=== PATIENT | male | born 1960 | race Caucasian/White ===

== ENCOUNTER 2020-08-10 12:05 | Outpatient (CLI) | payer MEDICARE | END 2020-08-10 12:06 | disposition home or self-care (01) | LOC: ULT 12:05 | PROVIDERS: ATTEND Family Medicine | DX: R09.89 Other specified symptoms and signs involving the circulatory and respiratory systems (principal) | CPT/HCPCS: 93306 ==

== ENCOUNTER 2021-10-16 14:36 | Outpatient (CLI) | payer MEDICARE, OTHER | END 2021-10-16 14:37 | disposition home or self-care (01) | LOC: ULT 14:36 | PROVIDERS: ATTEND Student in an Organized Health Care Education/Training Program | DX: R22.41 Localized swelling, mass and lump, right lower limb (principal); R22.42 Localized swelling, mass and lump, left lower limb; I82.401 Acute embolism and thrombosis of unspecified deep veins of right lower extremity ==

== ENCOUNTER 2022-01-24 21:37 | Inpatient (IN) | payer OTHER ==
[2022-01-24 22:30] LABS: Hemoglobin 13.1 g/dL (14.0-18.0); Mean Corpuscular HGB CONC 34.8 g/dL (32.0-36.0); Mean Corpuscular Hemoglobin 42.7 pg (27.0-31.0); Mean Platelet Volume 7.5 fL (7.4-10.4); Platelet Count 411 10x3/uL (130-400); RBC Distribution Width 13.1 % (11.5-14.5); Red Blood Cell (RBC) Count 3.06 mill/uL (4.70-6.10); White Blood Cell (WBC) Count 12.4 10x3/uL (4.8-10.8)
[2022-01-24 23:10] LABS: Band 2 % (5-11); Lymphocytes 28 % (21-51); MDiff Complete? YES; Macrocytosis MODERATE=16-30 cells (100X) (0-5/hpf); Monocytes 2 % (0-10); Neutrophil 66 % (42-75); Nucleated RBC 1 % (0); Platelet Morphology Comment Appears Increased; Reactive Lymphocytes 1 % (0-10); Target Cells MODERATE= 6-15 cells (100X) (0-1/hpf)
[2022-01-24 23:20] LABS: AST (SGOT) 133 U/L (5-34); Magnesium 1.7 mg/dL (1.6-2.6); Potassium 2.7 mmol/L (3.5-5.1); Protein, Total 6.9 g/dL (6.0-8.3)
[2022-01-24 23:26] LABS: ALT (SGPT) 49 U/L (8-55); Albumin 2.7 g/dL (3.5-5.0); Alkaline Phosphatase 316 U/L (40-110); Anion Gap 20 mmol/L (10-20); BUN (Urea Nitrogen) 8 mg/dL (8.4-25.7); Bilirubin, Total 2.4 mg/dL (0.2-1.2); Calc. Creatinine Clearance 0 mL/min (70-130); Calcium 8.1 mg/dL (7.8-10.44); Carbon Dioxide 18 mmol/L (22-29); Chloride 97 mmol/L (98-107); Estimated GFR 38; Globulin 4.6 g/dL (2.4-3.5); Glucose 141 mg/dL (70-105); Lipase 11 U/L (8-78); Sodium 131 mmol/L (136-145)
[2022-01-24] MEDS ORDERED: Aspirin Chewable 81 MG TAB ONE (23:55)
[2022-01-24] MEDS ORDERED: Potassium Chloride 20 MEQ TAB ONE (23:56)
[2022-01-25] MEDS ORDERED: Potassium Chloride 40 MEQ in Sodium Chloride 0.9% 250 ML 250 ML IVPB SCH (00:30)
[2022-01-25] MEDS ORDERED: Ondansetron ODT 4 MG TAB PO PRN (00:58)
[2022-01-25] MEDS ORDERED: Acetaminophen 325 MG TAB PO PRN (00:58)
[2022-01-25 01:37] LABS: Lactic Acid 2.1 mmol/L (0.5-2.2)
[2022-01-25] MEDS ORDERED: Lactated Ringer's 1,000 ML IV SCH ×2 (01:45)
[2022-01-25 02:10] LABS: Troponin I 0.039 ng/mL (< 0.028)
[2022-01-25] MEDS: Ondansetron PF 4 MG/2 ML Vial IVP PRN ×2 (02:25→08:09)
[2022-01-25 02:40] VITALS: BMI 22.1
[2022-01-25 03:31] LABS: SARS-CoV-2 NAA Rapid Test Not Detected (NotDetected)
[2022-01-25] MEDS: Lactated Ringer's 1,000 ML IV SCH ×6 (04:29→21:03)
[2022-01-25 05:07] LABS: Troponin I 0.028 ng/mL (< 0.028)
[2022-01-25 06:01] LABS: PTT 35.6 sec (22.9-36.1)
[2022-01-25 06:24] LABS: Chloride 105 mmol/L (98-107); Potassium 2.8 mmol/L (3.5-5.1); Sodium 134 mmol/L (136-145)
[2022-01-25 06:25] LABS: Glucose 102 mg/dL (70-105)
[2022-01-25 06:26] LABS: Globulin 2.6 g/dL (2.4-3.5)
[2022-01-25 06:27] LABS: Anion Gap 12 mmol/L (10-20); Bilirubin, Total 1.5 mg/dL (0.2-1.2); Carbon Dioxide 20 mmol/L (22-29)
[2022-01-25 06:28] LABS: Alkaline Phosphatase 226 U/L (40-110); Calcium 6.9 mg/dL (7.8-10.44); Protein, Total 4.6 g/dL (6.0-8.3)
[2022-01-25 06:29] LABS: Calc. Creatinine Clearance 49 mL/min (70-130); Estimated GFR 49
[2022-01-25 06:30] LABS: AST (SGOT) 93 U/L (5-34); BUN (Urea Nitrogen) 9 mg/dL (8.4-25.7)
[2022-01-25 06:31] LABS: ALT (SGPT) 38 U/L (8-55)
[2022-01-25 06:45] LABS: #Basophils 0.1 thou/uL (0.0-0.2); #Eosinphils 0.1 thou/uL (0.0-0.7); #Lymphocytes 3.4 thou/uL (1.20-3.40); #Monocytes 0.6 thou/uL (0.11-0.59); #Neutrophils 9.4 thou/uL (1.40-6.50); %Basophils 0.8 % (0.0-1.0); %Eosinophils 0.4 % (0.0-10.0); %Monocytes 4.7 % (0.0-10.0); Hemoglobin 9.5 g/dL (14.0-18.0); Mean Corpuscular HGB CONC 32.5 g/dL (32.0-36.0); Mean Corpuscular Hemoglobin 40.4 pg (27.0-31.0); Mean Platelet Volume 7.9 fL (7.4-10.4); Platelet Count 314 10x3/uL (130-400); RBC Distribution Width 13.2 % (11.5-14.5); Red Blood Cell (RBC) Count 2.34 mill/uL (4.70-6.10); White Blood Cell (WBC) Count 13.7 10x3/uL (4.8-10.8)
[2022-01-25] MEDS ORDERED: metroNIDAZOLE 500 MG in Premix Bag 1 BAG IVPB SCH ×2 (07:00→14:00)
[2022-01-25] MEDS: Apixaban 5 MG TAB PO SCH ×2 (08:11→19:49)
[2022-01-25] MEDS ORDERED: Iopamidol-370 76% 500 ML 1 ML ONE (10:20)
[2022-01-25] MEDS ORDERED: Multivitamins, Adult 10 ML, Folic Acid 1 MG, Thiamine HCl 100 MG in Dextrose 5 %-0.45 %... IV SCH (11:00)
[2022-01-25] MEDS: Vancomycin 1.5 GRAM/300 ML BAG 1.5 GM in Premix Bag 1 BAG IVPB SCH (11:20)
[2022-01-25] MEDS: Potassium Chloride 20 MEQ in Premix Bag 1 BAG IVPB SCH ×4 (13:09→18:54)
[2022-01-25] MEDS: Cefepime 1 GM in Sodium Chloride 0.9% 100 ML IVPB SCH ×2 (13:16→21:02)
[2022-01-25 14:11] LABS: Hemoglobin 9.2 g/dL (14.0-18.0); Mean Corpuscular HGB CONC 33.9 g/dL (32.0-36.0); Mean Corpuscular Hemoglobin 41.9 pg (27.0-31.0); Mean Platelet Volume 7.4 fL (7.4-10.4); Platelet Count 310 10x3/uL (130-400); Red Blood Cell (RBC) Count 2.18 mill/uL (4.70-6.10)
[2022-01-25 14:30] LABS: Howell Jolly Bodies SLIGHT = 1-2 cells (100X) (None Seen); Lymphocytes 16 % (21-51); MDiff Complete? YES; Macrocytosis MODERATE=16-30 cells (100X) (0-5/hpf); Monocytes 6 % (0-10); Neutrophil 78 % (42-75); Nucleated RBC 4 % (0); Pappenheimer Bodies SLIGHT = 1-2 cells (100X) (None Seen); Platelet Morphology Comment Appears Adequate; Polychromasia MODERATE = 3-4 cells (100X) (0-2/hpf); Target Cells SLIGHT = 2-5 cells (100X) (0-1/hpf); White Blood Cell (WBC) Count 12.1 10x3/uL (4.8-10.8)
[2022-01-25 15:02] LABS: ALT (SGPT) 35 U/L (8-55); AST (SGOT) 74 U/L (5-34); Albumin 1.9 g/dL (3.5-5.0); Alkaline Phosphatase 206 U/L (40-110); Anion Gap 12 mmol/L (10-20); BUN (Urea Nitrogen) 8 mg/dL (8.4-25.7); Bilirubin, Total 1.7 mg/dL (0.2-1.2); Calc. Creatinine Clearance 57 mL/min (70-130); Carbon Dioxide 19 mmol/L (22-29); Chloride 106 mmol/L (98-107); Estimated GFR 59; Globulin 2.5 g/dL (2.4-3.5); Glucose 81 mg/dL (70-105); Potassium 2.9 mmol/L (3.5-5.1); Protein, Total 4.4 g/dL (6.0-8.3); Sodium 134 mmol/L (136-145)
[2022-01-25 15:10] LABS: Calcium 6.8 mg/dL (7.8-10.44)
[2022-01-25] MEDS ORDERED: Potassium Chloride 40 MEQ in Premix Bag 1 BAG IVPB SCH (15:15)
[2022-01-25] MEDS: metroNIDAZOLE 500 MG in Premix Bag 1 BAG IVPB SCH (17:00)
[2022-01-25 17:52] LABS: Bacteria/HPF None Seen HPF (None Seen); Bilirubin 1+ (Negative); Blood, Urine Negative (Negative); CAUTI Indications for Culture Immunosuppressed; Clarity Clear (Clear); Glucose, Urine (Dipstick) Normal (Negative); Ketone, Urine 10 mg/dL (Negative); Leukocyte Negative Leu/uL (Negative); Nitrite Negative (Negative); Protein, Urine (Dipstick) 20 mg/dL (Neg-Trace); RBC/HPF 0-3 HPF (0-3); Squamous Epithelial 0-3 HPF (0-3); WBC/HPF 0-3 HPF (0-3)
[2022-01-25 17:55] LABS: Urine Culture Reflex Yes Yes
[2022-01-25 18:26] LABS: Creatinine, Urine 142.81 mg/dL (63-166); Sodium, Urine Less than 20 mmol/L (Not Available)
[2022-01-25] MEDS: Atorvastatin Calcium 40 MG TAB PO SCH (19:49)
[2022-01-26] MEDS: metroNIDAZOLE 500 MG in Premix Bag 1 BAG IVPB SCH ×3 (01:49→17:55)
[2022-01-26] MEDS: Lactated Ringer's 1,000 ML IV SCH ×5 (02:57→18:10)
[2022-01-26 04:41] LABS: ALT (SGPT) 33 U/L (8-55); AST (SGOT) 53 U/L (5-34); Albumin 1.7 g/dL (3.5-5.0); Alkaline Phosphatase 183 U/L (40-110); Anion Gap 10 mmol/L (10-20); BUN (Urea Nitrogen) 7 mg/dL (8.4-25.7); Bilirubin, Total 1.5 mg/dL (0.2-1.2); Calc. Creatinine Clearance 87 mL/min (70-130); Carbon Dioxide 19 mmol/L (22-29); Chloride 108 mmol/L (98-107); Estimated GFR 89; Globulin 2.3 g/dL (2.4-3.5); Glucose 83 mg/dL (70-105); Potassium 3.4 mmol/L (3.5-5.1); Sodium 134 mmol/L (136-145)
[2022-01-26 04:43] LABS: Calcium 6.6 mg/dL (7.8-10.44)
[2022-01-26 04:57] LABS: Eosinophils 1 % (0-10); Hemoglobin 7.8 g/dL (14.0-18.0); Lymphocytes 9 % (21-51); MDiff Complete? YES; Macrocytosis MODERATE=16-30 cells (100X) (0-5/hpf); Mean Corpuscular Hemoglobin 40.2 pg (27.0-31.0); Mean Platelet Volume 7.5 fL (7.4-10.4); Monocytes 1 % (0-10); Neutrophil 89 % (42-75); Nucleated RBC 2 % (0); Ovalocytes SLIGHT = 2-5 cells (100X) (0-1/hpf); Platelet Count 283 10x3/uL (130-400); Platelet Morphology Comment Appears Adequate; RBC Distribution Width 13.4 % (11.5-14.5); Red Blood Cell (RBC) Count 1.95 mill/uL (4.70-6.10); Target Cells MODERATE= 6-15 cells (100X) (0-1/hpf); White Blood Cell (WBC) Count 9.4 10x3/uL (4.8-10.8)
[2022-01-26] MEDS: Cefepime 1 GM in Sodium Chloride 0.9% 100 ML IVPB SCH ×2 (08:02→21:47)
[2022-01-26] MEDS: Apixaban 5 MG TAB PO SCH (08:03)
[2022-01-26] MEDS ORDERED: PROPOFOL 200 MG/20 ML VIAL ONE (09:15)
[2022-01-26] MEDS ORDERED: Phenylephrine 10 MG/ML VIAL ONE (09:15)
[2022-01-26] MEDS: Vancomycin 1.5 GRAM/300 ML BAG 1.5 GM in Premix Bag 1 BAG IVPB SCH (10:54)
[2022-01-26] MEDS ORDERED: Potassium Chloride 20 MEQ TAB PO SCH ×2 (11:15→17:00)
[2022-01-26] MEDS: Multivitamins, Adult 10 ML, Folic Acid 1 MG, Thiamine HCl 100 MG in Dextrose 5 %-0.45 %... IV SCH (11:30)
[2022-01-26] MEDS: Ondansetron PF 4 MG/2 ML Vial IVP PRN (11:33)
[2022-01-26 16:15] LABS: Hemoglobin 8.2 g/dL (14.0-18.0)
[2022-01-26 16:27] LABS: Potassium 3.9 mmol/L (3.5-5.1)
[2022-01-26] MEDS: Atorvastatin Calcium 40 MG TAB PO SCH (21:48)
[2022-01-27] MEDS: metroNIDAZOLE 500 MG in Premix Bag 1 BAG IVPB SCH (02:14)
[2022-01-27] MEDS: Lactated Ringer's 1,000 ML IV SCH (02:14)
[2022-01-27 05:46] LABS: ALT (SGPT) 35 U/L (8-55); AST (SGOT) 39 U/L (5-34); Albumin 1.7 g/dL (3.5-5.0); Alkaline Phosphatase 161 U/L (40-110); Anion Gap 10 mmol/L (10-20); BUN (Urea Nitrogen) 6 mg/dL (8.4-25.7); Bilirubin, Total 1.3 mg/dL (0.2-1.2); Calc. Creatinine Clearance 118 mL/min (70-130); Carbon Dioxide 20 mmol/L (22-29); Chloride 110 mmol/L (98-107); Estimated GFR 105; Globulin 2.2 g/dL (2.4-3.5); Glucose 78 mg/dL (70-105); Potassium 4.2 mmol/L (3.5-5.1); Protein, Total 3.9 g/dL (6.0-8.3); Sodium 136 mmol/L (136-145)
[2022-01-27 05:56] LABS: Hemoglobin 8.1 g/dL (14.0-18.0); Lymphocytes 20 % (21-51); MDiff Complete? YES; Macrocytosis SLIGHT = 6-15 cells (100X) (0-5/hpf); Mean Corpuscular HGB CONC 32.5 g/dL (32.0-36.0); Mean Corpuscular Hemoglobin 41.2 pg (27.0-31.0); Monocytes 7 % (0-10); Neutrophil 72 % (42-75); Platelet Count 240 10x3/uL (130-400); Platelet Morphology Comment Appears Adequate; RBC Distribution Width 13.7 % (11.5-14.5); Reactive Lymphocytes 1 % (0-10); Red Blood Cell (RBC) Count 1.97 mill/uL (4.70-6.10); White Blood Cell (WBC) Count 12.2 10x3/uL (4.8-10.8)
[2022-01-27 06:04] LABS: Calcium 6.7 mg/dL (7.8-10.44)
[2022-01-27 07:42] LABS: Vancomycin, Trough 15.7 ug/mL
[2022-01-27] MEDS: Vancomycin 1.5 GRAM/300 ML BAG 1.5 GM in Premix Bag 1 BAG IVPB SCH (08:32)
[2022-01-27] MEDS: Pantoprazole 40 MG VIAL IVP SCH (08:33)
[2022-01-27] MEDS: Amoxicillin/Potassium Clav 875 MG TAB PO SCH ×2 (10:32→21:16)
[2022-01-27] MEDS: Multivitamins, Adult 10 ML, Folic Acid 1 MG, Thiamine HCl 100 MG in Dextrose 5 %-0.45 %... IV SCH (11:22)
[2022-01-27] MEDS: metroNIDAZOLE 500 MG TAB PO SCH ×2 (15:33→21:16)
[2022-01-27] MEDS: Apixaban 5 MG TAB PO SCH (21:16)
[2022-01-27] MEDS: Atorvastatin Calcium 40 MG TAB PO SCH (21:16)
[2022-01-28 05:44] LABS: #Eosinphils 0.3 thou/uL (0.0-0.7); #Lymphocytes 2.7 thou/uL (1.20-3.40); #Monocytes 1.4 thou/uL (0.11-0.59); #Neutrophils 10.3 thou/uL (1.40-6.50); %Basophils 0.1 % (0.0-1.0); %Eosinophils 1.7 % (0.0-10.0); %Lymphocytes 18.5 % (21.0-51.0); %Monocytes 9.4 % (0.0-10.0); %Neutrophils 70.3 % (42.0-75.0); Hemoglobin 8.4 g/dL (14.0-18.0); Mean Corpuscular HGB CONC 31.2 g/dL (32.0-36.0); Mean Corpuscular Hemoglobin 39.8 pg (27.0-31.0); Mean Platelet Volume 8.2 fL (7.4-10.4); Platelet Count 266 10x3/uL (130-400); RBC Distribution Width 13.7 % (11.5-14.5); White Blood Cell (WBC) Count 14.7 10x3/uL (4.8-10.8)
[2022-01-28 05:59] LABS: ALT (SGPT) 39 U/L (8-55); AST (SGOT) 35 U/L (5-34); Albumin 1.9 g/dL (3.5-5.0); Alkaline Phosphatase 155 U/L (40-110); Anion Gap 10 mmol/L (10-20); BUN (Urea Nitrogen) 6 mg/dL (8.4-25.7); Bilirubin, Total 1.3 mg/dL (0.2-1.2); Calc. Creatinine Clearance 120 mL/min (70-130); Calcium 7.1 mg/dL (7.8-10.44); Carbon Dioxide 21 mmol/L (22-29); Chloride 108 mmol/L (98-107); Estimated GFR 104; Globulin 2.3 g/dL (2.4-3.5); Glucose 84 mg/dL (70-105); Protein, Total 4.2 g/dL (6.0-8.3); Sodium 135 mmol/L (136-145)
[2022-01-28] MEDS ORDERED: FLU VACC QS2022-23(6MOS UP)/PF 60 MCG/0.5 ML SYRINGE IM ONE (09:00)
[2022-01-28] MEDS ORDERED: Albumin 25% 25 GM/100 ML BOT IVPB SCH (09:30)
[2022-01-28] MEDS: metroNIDAZOLE 500 MG TAB PO SCH ×3 (09:36→21:23)
[2022-01-28] MEDS: Amoxicillin/Potassium Clav 875 MG TAB PO SCH ×2 (09:37→21:23)
[2022-01-28] MEDS: Apixaban 5 MG TAB PO SCH ×2 (09:37→21:23)
[2022-01-28] MEDS: Pantoprazole 40 MG VIAL IVP SCH (09:38)
[2022-01-28] MEDS ORDERED: Furosemide 20 MG/2 ML VIAL SLOW IVP SCH ×2 (09:45→15:00)
[2022-01-28] MEDS: Multivitamins, Adult 10 ML, Folic Acid 1 MG, Thiamine HCl 100 MG in Dextrose 5 %-0.45 %... IV SCH (12:53)
[2022-01-28] MEDS ORDERED: Acetaminophen 325 MG TAB PO SCH (16:00)
[2022-01-28] MEDS: Atorvastatin Calcium 40 MG TAB PO SCH (21:23)
[2022-01-29 05:58] LABS: #Basophils 0.1 thou/uL (0.0-0.2); #Eosinphils 0.3 thou/uL (0.0-0.7); #Lymphocytes 2.8 thou/uL (1.20-3.40); #Monocytes 1.9 thou/uL (0.11-0.59); #Neutrophils 12.2 thou/uL (1.40-6.50); %Basophils 0.4 % (0.0-1.0); %Eosinophils 1.6 % (0.0-10.0); %Monocytes 11.2 % (0.0-10.0); %Neutrophils 70.9 % (42.0-75.0)
[2022-01-29 05:59] LABS: Hemoglobin 7.8 g/dL (14.0-18.0); Mean Corpuscular HGB CONC 30.8 g/dL (32.0-36.0); Mean Corpuscular Hemoglobin 40.1 pg (27.0-31.0); Mean Platelet Volume 8.8 fL (7.4-10.4); Platelet Count 299 10x3/uL (130-400); RBC Distribution Width 14.2 % (11.5-14.5); Red Blood Cell (RBC) Count 1.95 mill/uL (4.70-6.10); White Blood Cell (WBC) Count 17.2 10x3/uL (4.8-10.8)
[2022-01-29] MEDS ORDERED: Acetaminophen 325 MG/10.15 ML UDCUP PO SCH (07:00)
[2022-01-29 08:10] LABS: ALT (SGPT) 34 U/L (8-55); AST (SGOT) 31 U/L (5-34); Albumin 2.3 g/dL (3.5-5.0); Alkaline Phosphatase 141 U/L (40-110); Anion Gap 9 mmol/L (10-20); BUN (Urea Nitrogen) 9 mg/dL (8.4-25.7); Bilirubin, Total 0.9 mg/dL (0.2-1.2); Calc. Creatinine Clearance 116 mL/min (70-130); Calcium 7.7 mg/dL (7.8-10.44); Carbon Dioxide 24 mmol/L (22-29); Chloride 106 mmol/L (98-107); Estimated GFR 104; Globulin 2.6 g/dL (2.4-3.5); Glucose 94 mg/dL (70-105); Potassium 3.7 mmol/L (3.5-5.1); Protein, Total 4.9 g/dL (6.0-8.3); Sodium 135 mmol/L (136-145)
[2022-01-29] MEDS ORDERED: Furosemide 20 MG/2 ML VIAL SLOW IVP SCH ×2 (08:30→11:15)
[2022-01-29] MEDS: Pantoprazole 40 MG VIAL IVP SCH (09:07)
[2022-01-29] MEDS: metroNIDAZOLE 500 MG TAB PO SCH ×2 (09:07→15:21)
[2022-01-29] MEDS: Apixaban 5 MG TAB PO SCH (09:07)
[2022-01-29] MEDS: Amoxicillin/Potassium Clav 875 MG TAB PO SCH (09:07)
[2022-01-29] MEDS ORDERED: Albumin 25% 25 GM/100 ML BOT IVPB SCH (10:00)
[2022-01-29] MEDS ORDERED: Acetaminophen 325 MG TAB PO SCH (15:00)
[2022-01-29 16:16] VITALS: BP 132/71; TEMP 97.3
== END 2022-01-29 17:10 | disposition home or self-care (01) | DRG 872 ==
LOC: ERS 21:37 → 2SW 01-25 00:06 → OBSVTOIN 01-25 10:46
PROVIDERS: ADMIT Family Medicine; ATTEND Family Medicine
PROC: 3E03329 Introduction of Other Anti-infective into Peripheral Vein, Percutaneous Approach (ICD-10-PCS; principal; 2022-01-25)
PROC: 0DJ08ZZ Inspection of Upper Intestinal Tract, Via Natural or Artificial Opening Endoscopic (ICD-10-PCS; 2022-01-26)
DX: A41.9 Sepsis, unspecified organism (principal); E87.20 Acidosis, unspecified; N17.9 Acute kidney failure, unspecified; K81.0 Acute cholecystitis; E46 Unspecified protein-calorie malnutrition; K21.9 Gastro-esophageal reflux disease without esophagitis; Z20.822 Contact with and (suspected) exposure to COVID-19; E87.6 Hypokalemia; E87.8 Other disorders of electrolyte and fluid balance, not elsewhere classified; E80.6 Other disorders of bilirubin metabolism; D64.9 Anemia, unspecified; F10.10 Alcohol abuse, uncomplicated; E78.5 Hyperlipidemia, unspecified; F17.210 Nicotine dependence, cigarettes, uncomplicated; K29.70 Gastritis, unspecified, without bleeding; R77.8 Other specified abnormalities of plasma proteins; Z86.718 Personal history of other venous thrombosis and embolism; Z88.0 Allergy status to penicillin; Z79.01 Long term (current) use of anticoagulants; Z79.899 Other long term (current) drug therapy; Z68.24 Body mass index [BMI] 24.0-24.9, adult
CPT/HCPCS: 36415; 71045; 74170; 76705; 80053; 80202; 80307; 81001; 82533; 82553; 82570; 82607; 83605; 83690; 83735; 83880; 84145; 84300; 84443; 84484; 85025; 85610; 85730; 86140; 87040; 87086; 93005; 93306; 96374; 96375; 96376; C9113; G0378; J0692; J1940; J2370; J2405; J2704; J3370; J3411; J3480; J3490; J7042; J7050; J7120; P9047; Q9967

== ENCOUNTER 2022-04-29 15:20 | Inpatient (IN) | payer OTHER ==
[~2022-04-29 15:20] MED LIST: Iopamidol-370 76% 500 ML 1 ML ONE
[2022-04-29] MEDS ORDERED: Ondansetron PF 4 MG/2 ML Vial ONE (16:49)
[2022-04-29] MEDS ORDERED: Pantoprazole 40 MG VIAL ONE (16:49)
[2022-04-29] MEDS ORDERED: Morphine 4 MG/ML VIAL ONE (16:49)
[2022-04-29 17:23] LABS: #Eosinphils 0.1 thou/uL (0.0-0.7); #Lymphocytes 1.8 thou/uL (1.20-3.40); #Monocytes 2.3 thou/uL (0.11-0.59); #Neutrophils 15.2 thou/uL (1.40-6.50); %Basophils 0.1 % (0.0-1.0); %Eosinophils 0.4 % (0.0-10.0); %Lymphocytes 9.2 % (21.0-51.0); %Monocytes 11.9 % (0.0-10.0); %Neutrophils 78.4 % (42.0-75.0); Hemoglobin 13.3 g/dL (14.0-18.0); Mean Corpuscular HGB CONC 32.8 g/dL (32.0-36.0); Mean Corpuscular Hemoglobin 35.9 pg (27.0-31.0); Mean Platelet Volume 7.4 fL (7.4-10.4); Platelet Count 518 10x3/uL (130-400); RBC Distribution Width 12.8 % (11.5-14.5); Red Blood Cell (RBC) Count 3.71 mill/uL (4.70-6.10); White Blood Cell (WBC) Count 19.4 10x3/uL (4.8-10.8)
[2022-04-29 17:31] LABS: ALT (SGPT) 8 U/L (8-55); AST (SGOT) 12 U/L (5-34); Albumin 2.8 g/dL (3.5-5.0); Alkaline Phosphatase 124 U/L (40-110); Anion Gap 16 mmol/L (10-20); BUN (Urea Nitrogen) 10 mg/dL (8.4-25.7); Bilirubin, Total 1.1 mg/dL (0.2-1.2); Calc. Creatinine Clearance 0 mL/min (70-130); Calcium 8.6 mg/dL (7.8-10.44); Carbon Dioxide 22 mmol/L (22-29); Chloride 101 mmol/L (98-107); Estimated GFR 105; Globulin 3.9 g/dL (2.4-3.5); Glucose 133 mg/dL (70-105); Lipase 569 U/L (8-78); Potassium 3.5 mmol/L (3.5-5.1); Protein, Total 6.7 g/dL (6.0-8.3); Sodium 135 mmol/L (136-145)
[2022-04-29 17:39] LABS: MDiff Complete? YES; Macrocytosis SLIGHT = 6-15 cells (100X) (0-5/hpf); Platelet Morphology Comment Appears Increased; Polychromasia SLIGHT = 2-3 cells (100X) (0-2/hpf); Target Cells SLIGHT = 2-5 cells (100X) (0-1/hpf)
[2022-04-29] MEDS ORDERED: Cefepime 2 GM VIAL ONE (17:51)
[2022-04-29] MEDS ORDERED: Sodium Chloride 0.9% 100 ML ONE (17:51)
[2022-04-29 20:16] LABS: Lactic Acid 1.5 mmol/L (0.5-2.2)
[2022-04-29] MEDS ORDERED: Acetaminophen 325 MG TAB PO PRN (20:53)
[2022-04-29 21:18] LABS: Bacteria/HPF None Seen HPF (None Seen); Bilirubin Negative (Negative); Blood, Urine Negative (Negative); Clarity Clear (Clear); Glucose, Urine (Dipstick) Normal (Negative); Ketone, Urine Negative (Negative); Leukocyte Negative Leu/uL (Negative); Nitrite Negative (Negative); Protein, Urine (Dipstick) 70 mg/dL (Neg-Trace); RBC/HPF 0-3 HPF (0-3); Squamous Epithelial 0-3 HPF (0-3); WBC/HPF 0-3 HPF (0-3); pH, Urine 6.5 (5.0-9.0)
[2022-04-29 21:19] LABS: Specific Gravity, Urine Greater than 1.065 (1.002-1.036)
[2022-04-29 21:30] VITALS: BMI 20.1
[2022-04-29] MEDS: Nicotine 14 MG PATCH TD SCH (21:46)
[2022-04-30] MEDS ORDERED: Pantoprazole 40 MG VIAL IVP SCH ×2 (01:45→09:00)
[2022-04-30] MEDS: Lactated Ringer's 1,000 ML IV SCH ×3 (02:01→20:43)
[2022-04-30 07:11] LABS: #Basophils 0.1 thou/uL (0.0-0.2); #Eosinphils 0.8 thou/uL (0.0-0.7); #Lymphocytes 2.3 thou/uL (1.20-3.40); #Neutrophils 11.5 thou/uL (1.40-6.50); %Basophils 0.4 % (0.0-1.0); %Eosinophils 4.6 % (0.0-10.0); %Lymphocytes 13.8 % (21.0-51.0); %Monocytes 11.8 % (0.0-10.0); %Neutrophils 69.3 % (42.0-75.0); Hemoglobin 10.6 g/dL (14.0-18.0); Mean Corpuscular HGB CONC 31.6 g/dL (32.0-36.0); Mean Corpuscular Hemoglobin 34.6 pg (27.0-31.0); Mean Platelet Volume 7.6 fL (7.4-10.4); Platelet Count 519 10x3/uL (130-400); RBC Distribution Width 12.6 % (11.5-14.5); Red Blood Cell (RBC) Count 3.06 mill/uL (4.70-6.10); White Blood Cell (WBC) Count 16.6 10x3/uL (4.8-10.8)
[2022-04-30 07:34] LABS: ALT (SGPT) Less than 7 U/L (8-55); AST (SGOT) 12 U/L (5-34); Albumin 2.3 g/dL (3.5-5.0); Alkaline Phosphatase 96 U/L (40-110); Anion Gap 12 mmol/L (10-20); BUN (Urea Nitrogen) 11 mg/dL (8.4-25.7); Bilirubin, Total 0.9 mg/dL (0.2-1.2); Calc. Creatinine Clearance 107 mL/min (70-130); Calcium 8.2 mg/dL (7.8-10.44); Carbon Dioxide 26 mmol/L (22-29); Chloride 103 mmol/L (98-107); Estimated GFR 108; Globulin 3.2 g/dL (2.4-3.5); Glucose 84 mg/dL (70-105); Potassium 4.3 mmol/L (3.5-5.1); Protein, Total 5.5 g/dL (6.0-8.3); Sodium 137 mmol/L (136-145)
[2022-04-30] MEDS: MULTIVIT/IRON SULF/FOLIC ACID 1 EACH TAB PO SCH (08:35)
[2022-04-30] MEDS: Pantoprazole 40 MG VIAL IVP SCH ×2 (08:35→20:50)
[2022-04-30] MEDS ORDERED: Heparin 10,000 UNITS/ 10 ML VIAL SLOW IVP SCH (09:00)
[2022-04-30] MEDS ORDERED: Heparin 10,000 UNITS/1 ML VIAL SLOW IVP SCH (09:00)
[2022-04-30] MEDS ORDERED: Apixaban 5 MG TAB PO SCH (09:00)
[2022-04-30] MEDS: Acetaminophen 325 MG TAB PO PRN ×2 (09:39→20:57)
[2022-04-30] MEDS ORDERED: Heparin 5,000 UNITS/ML VIAL SC SCH ×2 (10:15→21:00)
[2022-04-30] MEDS ORDERED: PHENYLEPHRINE-NS 100 MCG/ML 10 ML SYRINGE ONE (12:21)
[2022-04-30] MEDS ORDERED: PROPOFOL 200 MG/20 ML VIAL ONE (13:45)
[2022-04-30] MEDS: Morphine 4 MG/ML VIAL SLOW IVP PRN (15:43)
[2022-04-30] MEDS: Atorvastatin Calcium 40 MG TAB PO SCH (20:45)
[2022-04-30] MEDS: Nicotine 14 MG PATCH TD SCH (20:59)
[2022-05-01] MEDS: Lactated Ringer's 1,000 ML IV SCH ×3 (00:05→08:35)
[2022-05-01] MEDS: Acetaminophen 325 MG TAB PO PRN ×2 (04:55→16:04)
[2022-05-01] MEDS: Morphine 4 MG/ML VIAL SLOW IVP PRN ×2 (06:21→16:39)
[2022-05-01 07:34] LABS: ALT (SGPT) Less than 7 U/L (8-55); AST (SGOT) 11 U/L (5-34); Albumin 2.3 g/dL (3.5-5.0); Alkaline Phosphatase 94 U/L (40-110); Anion Gap 16 mmol/L (10-20); BUN (Urea Nitrogen) 10 mg/dL (8.4-25.7); Bilirubin, Total 0.7 mg/dL (0.2-1.2); Calc. Creatinine Clearance 122 mL/min (70-130); Carbon Dioxide 24 mmol/L (22-29); Chloride 100 mmol/L (98-107); Estimated GFR 112; Globulin 3.3 g/dL (2.4-3.5); Glucose 66 mg/dL (70-105); Potassium 3.5 mmol/L (3.5-5.1); Protein, Total 5.6 g/dL (6.0-8.3); Sodium 136 mmol/L (136-145)
[2022-05-01 07:39] LABS: #Eosinphils 0.5 thou/uL (0.0-0.7); #Lymphocytes 1.9 thou/uL (1.20-3.40); #Monocytes 1.3 thou/uL (0.11-0.59); %Basophils 0.2 % (0.0-1.0); %Eosinophils 3.1 % (0.0-10.0); %Lymphocytes 10.4 % (21.0-51.0); %Monocytes 7.5 % (0.0-10.0); %Neutrophils 78.8 % (42.0-75.0); Hemoglobin 10.6 g/dL (14.0-18.0); Mean Corpuscular HGB CONC 31.9 g/dL (32.0-36.0); Mean Corpuscular Hemoglobin 34.9 pg (27.0-31.0); Mean Platelet Volume 7.5 fL (7.4-10.4); Platelet Count 602 10x3/uL (130-400); RBC Distribution Width 12.4 % (11.5-14.5); Red Blood Cell (RBC) Count 3.05 mill/uL (4.70-6.10); White Blood Cell (WBC) Count 17.8 10x3/uL (4.8-10.8)
[2022-05-01] MEDS: MULTIVIT/IRON SULF/FOLIC ACID 1 EACH TAB PO SCH ×2 (08:17→08:23)
[2022-05-01] MEDS: Pantoprazole 40 MG VIAL IVP SCH ×2 (08:18→20:14)
[2022-05-01] MEDS ORDERED: Heparin 5,000 UNITS/ML VIAL SC SCH (09:00)
[2022-05-01] MEDS ORDERED: Lactated Ringer's 1,000 ML IV SCH ×2 (10:03→11:08)
[2022-05-01] MEDS ORDERED: Simethicone Chewable 80 MG TAB PO SCH ×2 (11:15→11:45)
[2022-05-01] MEDS ORDERED: Simethicone Chewable 80 MG TAB PO PRN ×2 (11:18→11:32)
[2022-05-01] MEDS ORDERED: Dextrose 50% Abboject 50 ML SYRINGE SLOW IVP PRN (11:27)
[2022-05-01] MEDS ORDERED: Dextrose 5% in Water 1,000 ML IV PRN (11:27)
[2022-05-01] MEDS: Dextrose 5%-Lactated Ringers 1,000 ML IV SCH (16:33)
[2022-05-01] MEDS: Atorvastatin Calcium 40 MG TAB PO SCH (20:13)
[2022-05-01] MEDS: Heparin 5,000 UNITS/ML VIAL SC SCH (20:14)
[2022-05-01] MEDS: Nicotine 14 MG PATCH TD SCH (22:26)
[2022-05-02] MEDS: Dextrose 5%-Lactated Ringers 1,000 ML IV SCH ×2 (00:59→08:52)
[2022-05-02] MEDS: Acetaminophen 325 MG TAB PO PRN ×3 (01:00→21:50)
[2022-05-02] MEDS: Ondansetron PF 4 MG/2 ML Vial IVP PRN ×2 (06:43→15:33)
[2022-05-02 06:47] LABS: #Eosinphils 0.7 thou/uL (0.0-0.7); #Lymphocytes 1.9 thou/uL (1.20-3.40); #Neutrophils 12.2 thou/uL (1.40-6.50); %Basophils 0.3 % (0.0-1.0); %Eosinophils 4.3 % (0.0-10.0); %Lymphocytes 11.2 % (21.0-51.0); %Monocytes 11.8 % (0.0-10.0); %Neutrophils 72.5 % (42.0-75.0); Hemoglobin 10.7 g/dL (14.0-18.0); Mean Corpuscular HGB CONC 32.1 g/dL (32.0-36.0); Mean Corpuscular Hemoglobin 34.7 pg (27.0-31.0); Platelet Count 621 10x3/uL (130-400); RBC Distribution Width 12.5 % (11.5-14.5); Red Blood Cell (RBC) Count 3.09 mill/uL (4.70-6.10); White Blood Cell (WBC) Count 16.9 10x3/uL (4.8-10.8)
[2022-05-02] MEDS: Morphine 4 MG/ML VIAL SLOW IVP PRN ×2 (06:47→15:30)
[2022-05-02 07:13] LABS: ALT (SGPT) Less than 7 U/L (8-55); AST (SGOT) 11 U/L (5-34); Alkaline Phosphatase 87 U/L (40-110); Anion Gap 9 mmol/L (10-20); BUN (Urea Nitrogen) 8 mg/dL (8.4-25.7); Bilirubin, Total 0.7 mg/dL (0.2-1.2); Calc. Creatinine Clearance 119 mL/min (70-130); Calcium 7.9 mg/dL (7.8-10.44); Carbon Dioxide 27 mmol/L (22-29); Chloride 101 mmol/L (98-107); Estimated GFR 111; Globulin 3.2 g/dL (2.4-3.5); Glucose 120 mg/dL (70-105); Potassium 2.9 mmol/L (3.5-5.1); Protein, Total 5.2 g/dL (6.0-8.3); Sodium 134 mmol/L (136-145)
[2022-05-02] MEDS: Simethicone Chewable 80 MG TAB PO SCH ×4 (08:52→21:49)
[2022-05-02] MEDS: MULTIVIT/IRON SULF/FOLIC ACID 1 EACH TAB PO SCH (08:52)
[2022-05-02] MEDS: Pantoprazole 40 MG VIAL IVP SCH ×2 (08:53→21:53)
[2022-05-02] MEDS: Heparin 5,000 UNITS/ML VIAL SC SCH ×3 (08:54→21:52)
[2022-05-02] MEDS ORDERED: Potassium Chloride 20 MEQ TAB PO SCH (09:30)
[2022-05-02] MEDS: D5 0.9% NS w/ 20 mEq KCl 1,000 ML IV SCH (12:11)
[2022-05-02] MEDS: Potassium Chloride 10 MEQ in Premix Bag 1 BAG IVPB SCH ×3 (12:43→15:29)
[2022-05-02 15:11] LABS: Anion Gap 11 mmol/L (10-20); BUN (Urea Nitrogen) 6 mg/dL (8.4-25.7); Calc. Creatinine Clearance 119 mL/min (70-130); Calcium 7.5 mg/dL (7.8-10.44); Carbon Dioxide 25 mmol/L (22-29); Chloride 101 mmol/L (98-107); Estimated GFR 111; Glucose 102 mg/dL (70-105); Potassium 3.6 mmol/L (3.5-5.1); Sodium 133 mmol/L (136-145)
[2022-05-02] MEDS: Atorvastatin Calcium 40 MG TAB PO SCH (21:48)
[2022-05-02] MEDS: Nicotine 14 MG PATCH TD SCH (21:53)
[2022-05-03] MEDS: D5 0.9% NS w/ 20 mEq KCl 1,000 ML IV SCH ×3 (02:17→16:12)
[2022-05-03] MEDS: Morphine 4 MG/ML VIAL SLOW IVP PRN ×3 (05:31→19:31)
[2022-05-03] MEDS: Ondansetron PF 4 MG/2 ML Vial IVP PRN ×3 (05:31→19:31)
[2022-05-03 07:15] LABS: #Eosinphils 0.9 thou/uL (0.0-0.7); #Lymphocytes 2.1 thou/uL (1.20-3.40); #Monocytes 1.9 thou/uL (0.11-0.59); #Neutrophils 9.9 thou/uL (1.40-6.50); %Basophils 0.1 % (0.0-1.0); %Lymphocytes 13.9 % (21.0-51.0); %Monocytes 12.8 % (0.0-10.0); %Neutrophils 67.2 % (42.0-75.0); Hemoglobin 9.9 g/dL (14.0-18.0); Mean Corpuscular Hemoglobin 34.9 pg (27.0-31.0); Mean Platelet Volume 7.2 fL (7.4-10.4); Platelet Count 711 10x3/uL (130-400); RBC Distribution Width 12.4 % (11.5-14.5); Red Blood Cell (RBC) Count 2.85 mill/uL (4.70-6.10); White Blood Cell (WBC) Count 14.7 10x3/uL (4.8-10.8)
[2022-05-03 07:40] LABS: Lipase 328 U/L (8-78); Phosphorus 1.9 mg/dL (2.3-4.7)
[2022-05-03 07:41] LABS: ALT (SGPT) Less than 7 U/L (8-55); AST (SGOT) 12 U/L (5-34); Alkaline Phosphatase 84 U/L (40-110); Anion Gap 10 mmol/L (10-20); BUN (Urea Nitrogen) 5 mg/dL (8.4-25.7); Bilirubin, Total 0.8 mg/dL (0.2-1.2); Calc. Creatinine Clearance 122 mL/min (70-130); Calcium 7.2 mg/dL (7.8-10.44); Carbon Dioxide 26 mmol/L (22-29); Chloride 103 mmol/L (98-107); Estimated GFR 112; Globulin 2.8 g/dL (2.4-3.5); Glucose 98 mg/dL (70-105); Magnesium 1.3 mg/dL (1.6-2.6); Potassium 3.6 mmol/L (3.5-5.1); Protein, Total 4.8 g/dL (6.0-8.3); Sodium 135 mmol/L (136-145)
[2022-05-03] MEDS: Simethicone Chewable 80 MG TAB PO SCH ×4 (09:28→21:57)
[2022-05-03] MEDS: Pantoprazole 40 MG VIAL IVP SCH ×2 (09:28→21:57)
[2022-05-03] MEDS: Heparin 5,000 UNITS/ML VIAL SC SCH ×3 (09:28→21:57)
[2022-05-03] MEDS: MULTIVIT/IRON SULF/FOLIC ACID 1 EACH TAB PO SCH (09:28)
[2022-05-03] MEDS ORDERED: Magnesium 2 GM/50 ML(in water) 2 GM in Premix Bag 1 BAG IVPB SCH (09:30)
[2022-05-03] MEDS ORDERED: Potassium Phosphate 9 MMOL in Sodium Chloride 0.9% 100 ML IVPB SCH (09:30)
[2022-05-03] MEDS: Acetaminophen 325 MG TAB PO PRN ×3 (09:39→23:51)
[2022-05-03] MEDS: Atorvastatin Calcium 40 MG TAB PO SCH (21:57)
[2022-05-03] MEDS: Nicotine 14 MG PATCH TD SCH (22:26)
[2022-05-04] MEDS: D5 0.9% NS w/ 20 mEq KCl 1,000 ML IV SCH ×2 (02:39→12:53)
[2022-05-04] MEDS: Morphine 4 MG/ML VIAL SLOW IVP PRN ×4 (03:12→23:25)
[2022-05-04] MEDS: Ondansetron PF 4 MG/2 ML Vial IVP PRN ×4 (03:12→23:15)
[2022-05-04 07:05] LABS: ALT (SGPT) Less than 7 U/L (8-55); AST (SGOT) 19 U/L (5-34); Albumin 2.1 g/dL (3.5-5.0); Alkaline Phosphatase 127 U/L (40-110); Anion Gap 13 mmol/L (10-20); BUN (Urea Nitrogen) 4 mg/dL (8.4-25.7); Bilirubin, Total 0.7 mg/dL (0.2-1.2); Calc. Creatinine Clearance 114 mL/min (70-130); Calcium 7.5 mg/dL (7.8-10.44); Carbon Dioxide 22 mmol/L (22-29); Chloride 103 mmol/L (98-107); Estimated GFR 110; Globulin 3.3 g/dL (2.4-3.5); Glucose 103 mg/dL (70-105); Potassium 4.3 mmol/L (3.5-5.1); Protein, Total 5.4 g/dL (6.0-8.3); Sodium 134 mmol/L (136-145)
[2022-05-04 07:31] LABS: Eosinophils 6 % (0-10); Hemoglobin 10.5 g/dL (14.0-18.0); Hypochromia SLIGHT = 6-15 cells (100X) (0-5/hpf); Lymphocytes 10 % (21-51); MDiff Complete? YES; Macrocytosis SLIGHT = 6-15 cells (100X) (0-5/hpf); Mean Corpuscular HGB CONC 32.1 g/dL (32.0-36.0); Mean Corpuscular Hemoglobin 35.1 pg (27.0-31.0); Mean Platelet Volume 7.1 fL (7.4-10.4); Monocytes 10 % (0-10); Neutrophil 74 % (42-75); Ovalocytes SLIGHT = 2-5 cells (100X) (0-1/hpf); Platelet Count 840 10x3/uL (130-400); Platelet Morphology Comment Appears Increased; Polychromasia SLIGHT = 2-3 cells (100X) (0-2/hpf); RBC Distribution Width 12.6 % (11.5-14.5); Red Blood Cell (RBC) Count 2.98 mill/uL (4.70-6.10); Target Cells SLIGHT = 2-5 cells (100X) (0-1/hpf)
[2022-05-04] MEDS: Simethicone Chewable 80 MG TAB PO SCH ×4 (08:21→21:59)
[2022-05-04] MEDS: MULTIVIT/IRON SULF/FOLIC ACID 1 EACH TAB PO SCH (08:21)
[2022-05-04] MEDS: Acetaminophen 325 MG TAB PO PRN ×3 (08:22→23:07)
[2022-05-04] MEDS: Heparin 5,000 UNITS/ML VIAL SC SCH ×3 (08:23→21:59)
[2022-05-04] MEDS: Pantoprazole 40 MG VIAL IVP SCH ×2 (08:23→21:59)
[2022-05-04 09:18] LABS: Magnesium 1.8 mg/dL (1.6-2.6); Phosphorus 2.9 mg/dL (2.3-4.7)
[2022-05-04] MEDS: Atorvastatin Calcium 40 MG TAB PO SCH (21:59)
[2022-05-04] MEDS: Nicotine 14 MG PATCH TD SCH (22:58)
[2022-05-05] MEDS: Ondansetron PF 4 MG/2 ML Vial IVP PRN ×2 (05:37→18:05)
[2022-05-05] MEDS: Morphine 4 MG/ML VIAL SLOW IVP PRN ×3 (05:37→20:11)
[2022-05-05 08:14] LABS: Hemoglobin 9.8 g/dL (14.0-18.0); Mean Corpuscular HGB CONC 32.3 g/dL (32.0-36.0); Mean Corpuscular Hemoglobin 34.9 pg (27.0-31.0); RBC Distribution Width 12.5 % (11.5-14.5); Red Blood Cell (RBC) Count 2.81 mill/uL (4.70-6.10)
[2022-05-05 08:31] LABS: ALT (SGPT) Less than 7 U/L (8-55); AST (SGOT) 15 U/L (5-34); Albumin 2.1 g/dL (3.5-5.0); Alkaline Phosphatase 119 U/L (40-110); Anion Gap 12 mmol/L (10-20); BUN (Urea Nitrogen) 4 mg/dL (8.4-25.7); Bilirubin, Total 0.8 mg/dL (0.2-1.2); Calc. Creatinine Clearance 110 mL/min (70-130); Calcium 7.4 mg/dL (7.8-10.44); Carbon Dioxide 24 mmol/L (22-29); Chloride 102 mmol/L (98-107); Estimated GFR 109; Globulin 3.2 g/dL (2.4-3.5); Glucose 101 mg/dL (70-105); Potassium 4.1 mmol/L (3.5-5.1); Protein, Total 5.3 g/dL (6.0-8.3); Sodium 134 mmol/L (136-145)
[2022-05-05] MEDS: Acetaminophen 325 MG TAB PO PRN ×3 (08:53→23:50)
[2022-05-05] MEDS: Heparin 5,000 UNITS/ML VIAL SC SCH ×3 (08:55→20:17)
[2022-05-05] MEDS: Simethicone Chewable 80 MG TAB PO SCH ×4 (08:55→20:16)
[2022-05-05] MEDS: Pantoprazole 40 MG VIAL IVP SCH ×2 (08:55→20:15)
[2022-05-05] MEDS: MULTIVIT/IRON SULF/FOLIC ACID 1 EACH TAB PO SCH (08:55)
[2022-05-05 09:31] LABS: Eosinophils 2 % (0-10); Lymphocytes 14 % (21-51); MDiff Complete? YES; Mean Platelet Volume 7.4 fL (7.4-10.4); Monocytes 11 % (0-10); Neutrophil 73 % (42-75); Ovalocytes SLIGHT = 2-5 cells (100X) (0-1/hpf); Platelet Count 866 10x3/uL (130-400); Platelet Morphology Comment Appears Increased; Polychromasia SLIGHT = 2-3 cells (100X) (0-2/hpf); Target Cells SLIGHT = 2-5 cells (100X) (0-1/hpf); Vacuoles SLIGHT; White Blood Cell (WBC) Count 20.8 10x3/uL (4.8-10.8)
[2022-05-05] MEDS: D5 0.9% NS w/ 20 mEq KCl 1,000 ML IV SCH ×3 (11:19→20:29)
[2022-05-05] MEDS: Nicotine 14 MG PATCH TD SCH (13:05)
[2022-05-05] MEDS ORDERED: Magnevist 469MG/ML 20 ML VIAL ONE (14:10)
[2022-05-05] MEDS ORDERED: Bisacodyl 10 MG SUPP PR SCH (18:30)
[2022-05-05] MEDS: Atorvastatin Calcium 40 MG TAB PO SCH (20:16)
[2022-05-06] MEDS: Ondansetron PF 4 MG/2 ML Vial IVP PRN ×3 (02:52→15:37)
[2022-05-06] MEDS: Morphine 4 MG/ML VIAL SLOW IVP PRN ×4 (02:55→20:34)
[2022-05-06] MEDS: D5 0.9% NS w/ 20 mEq KCl 1,000 ML IV SCH ×2 (06:40→15:44)
[2022-05-06 07:28] LABS: #Eosinphils 0.2 thou/uL (0.0-0.7); #Lymphocytes 2.1 thou/uL (1.20-3.40); #Monocytes 1.7 thou/uL (0.11-0.59); %Basophils 0.1 % (0.0-1.0); %Eosinophils 0.9 % (0.0-10.0); %Monocytes 8.8 % (0.0-10.0); %Neutrophils 79.2 % (42.0-75.0); Hemoglobin 9.2 g/dL (14.0-18.0); Mean Corpuscular HGB CONC 32.3 g/dL (32.0-36.0); Mean Corpuscular Hemoglobin 34.7 pg (27.0-31.0); Mean Platelet Volume 7.3 fL (7.4-10.4); Platelet Count 884 10x3/uL (130-400); RBC Distribution Width 12.6 % (11.5-14.5); Red Blood Cell (RBC) Count 2.65 mill/uL (4.70-6.10)
[2022-05-06 07:49] LABS: ALT (SGPT) Less than 7 U/L (8-55); AST (SGOT) 19 U/L (5-34); Albumin 1.7 g/dL (3.5-5.0); Alkaline Phosphatase 109 U/L (40-110); Anion Gap 11 mmol/L (10-20); BUN (Urea Nitrogen) Less than 4 mg/dL (8.4-25.7); Bilirubin, Total 0.7 mg/dL (0.2-1.2); Calc. Creatinine Clearance 116 mL/min (70-130); Calcium 7.3 mg/dL (7.8-10.44); Carbon Dioxide 21 mmol/L (22-29); Chloride 104 mmol/L (98-107); Estimated GFR 110; Glucose 104 mg/dL (70-105); Potassium 4.4 mmol/L (3.5-5.1); Protein, Total 4.7 g/dL (6.0-8.3); Sodium 132 mmol/L (136-145)
[2022-05-06] MEDS: Simethicone Chewable 80 MG TAB PO SCH ×4 (08:28→20:27)
[2022-05-06] MEDS: MULTIVIT/IRON SULF/FOLIC ACID 1 EACH TAB PO SCH (08:29)
[2022-05-06] MEDS: Heparin 5,000 UNITS/ML VIAL SC SCH (08:29)
[2022-05-06] MEDS: Pantoprazole 40 MG VIAL IVP SCH ×2 (08:30→20:36)
[2022-05-06] MEDS: Polyethylene Glycol 3350 17 GM Packet PO SCH (08:30)
[2022-05-06] MEDS: Acetaminophen 325 MG TAB PO PRN (10:48)
[2022-05-06] MEDS ORDERED: Bisacodyl 10 MG SUPP PR SCH (11:45)
[2022-05-06] MEDS: Nicotine 14 MG PATCH TD SCH (13:13)
[2022-05-06] MEDS: Atorvastatin Calcium 40 MG TAB PO SCH (20:37)
[2022-05-06] MEDS: Apixaban 5 MG TAB PO SCH (20:38)
[2022-05-07] MEDS: Acetaminophen 325 MG TAB PO PRN ×3 (00:41→15:42)
[2022-05-07] MEDS: Ondansetron PF 4 MG/2 ML Vial IVP PRN ×3 (00:41→20:47)
[2022-05-07] MEDS: D5 0.9% NS w/ 20 mEq KCl 1,000 ML IV SCH ×3 (02:45→23:40)
[2022-05-07 07:17] LABS: Hemoglobin 10.3 g/dL (14.0-18.0); Mean Corpuscular HGB CONC 32.1 g/dL (32.0-36.0); Mean Corpuscular Hemoglobin 34.4 pg (27.0-31.0); Mean Platelet Volume 7.2 fL (7.4-10.4); Platelet Count 1083 10x3/uL (130-400); RBC Distribution Width 12.6 % (11.5-14.5); Red Blood Cell (RBC) Count 2.99 mill/uL (4.70-6.10); White Blood Cell (WBC) Count 19.6 10x3/uL (4.8-10.8)
[2022-05-07 07:35] LABS: ALT (SGPT) Less than 7 U/L (8-55); AST (SGOT) 17 U/L (5-34); Alkaline Phosphatase 124 U/L (40-110); Anion Gap 13 mmol/L (10-20); BUN (Urea Nitrogen) 4 mg/dL (8.4-25.7); Bilirubin, Total 0.8 mg/dL (0.2-1.2); Calc. Creatinine Clearance 112 mL/min (70-130); Calcium 7.2 mg/dL (7.8-10.44); Carbon Dioxide 22 mmol/L (22-29); Chloride 101 mmol/L (98-107); Estimated GFR 109; Globulin 2.9 g/dL (2.4-3.5); Glucose 95 mg/dL (70-105); Potassium 4.5 mmol/L (3.5-5.1); Protein, Total 4.9 g/dL (6.0-8.3); Sodium 131 mmol/L (136-145)
[2022-05-07 08:29] LABS: Hypochromia SLIGHT = 6-15 cells (100X) (0-5/hpf); Lymphocytes 13 % (21-51); MDiff Complete? YES; Macrocytosis SLIGHT = 6-15 cells (100X) (0-5/hpf); Monocytes 1 % (0-10); Neutrophil 86 % (42-75); Platelet Morphology Comment Appears Increased; Polychromasia SLIGHT = 2-3 cells (100X) (0-2/hpf); Target Cells SLIGHT = 2-5 cells (100X) (0-1/hpf)
[2022-05-07] MEDS ORDERED: MD-Gastroview 120 ML BOT ONE (09:47)
[2022-05-07] MEDS: MULTIVIT/IRON SULF/FOLIC ACID 1 EACH TAB PO SCH (10:57)
[2022-05-07] MEDS: Simethicone Chewable 80 MG TAB PO SCH ×4 (10:57→20:37)
[2022-05-07] MEDS: Apixaban 5 MG TAB PO SCH ×2 (10:58→20:37)
[2022-05-07] MEDS: Polyethylene Glycol 3350 17 GM Packet PO SCH (10:58)
[2022-05-07] MEDS: Morphine 4 MG/ML VIAL SLOW IVP PRN ×2 (10:58→20:38)
[2022-05-07] MEDS: Pantoprazole 40 MG VIAL IVP SCH ×2 (10:58→20:38)
[2022-05-07] MEDS: Nicotine 14 MG PATCH TD SCH (15:28)
[2022-05-07] MEDS: Atorvastatin Calcium 40 MG TAB PO SCH (20:37)
[2022-05-08] MEDS: D5 0.9% NS w/ 20 mEq KCl 1,000 ML IV SCH ×2 (01:58→18:01)
[2022-05-08] MEDS: Ondansetron PF 4 MG/2 ML Vial IVP PRN ×3 (06:37→20:22)
[2022-05-08] MEDS: Morphine 4 MG/ML VIAL SLOW IVP PRN ×3 (06:37→20:23)
[2022-05-08 07:08] LABS: #Eosinphils 0.3 thou/uL (0.0-0.7); #Neutrophils 14.1 thou/uL (1.40-6.50); %Basophils 0.2 % (0.0-1.0); %Eosinophils 1.5 % (0.0-10.0); %Monocytes 10.7 % (0.0-10.0); %Neutrophils 76.7 % (42.0-75.0); Hemoglobin 9.2 g/dL (14.0-18.0); Mean Corpuscular HGB CONC 31.7 g/dL (32.0-36.0); Mean Corpuscular Hemoglobin 33.7 pg (27.0-31.0); Platelet Count 1116 10x3/uL (130-400); RBC Distribution Width 12.5 % (11.5-14.5); Red Blood Cell (RBC) Count 2.73 mill/uL (4.70-6.10); White Blood Cell (WBC) Count 18.4 10x3/uL (4.8-10.8)
[2022-05-08 07:27] LABS: ALT (SGPT) Less than 7 U/L (8-55); AST (SGOT) 17 U/L (5-34); Albumin 1.7 g/dL (3.5-5.0); Alkaline Phosphatase 106 U/L (40-110); Anion Gap 11 mmol/L (10-20); BUN (Urea Nitrogen) 5 mg/dL (8.4-25.7); Bilirubin, Total 0.9 mg/dL (0.2-1.2); Calc. Creatinine Clearance 112 mL/min (70-130); Calcium 7.4 mg/dL (7.8-10.44); Carbon Dioxide 23 mmol/L (22-29); Chloride 102 mmol/L (98-107); Estimated GFR 109; Glucose 94 mg/dL (70-105); Protein, Total 4.7 g/dL (6.0-8.3); Sodium 132 mmol/L (136-145)
[2022-05-08] MEDS: Polyethylene Glycol 3350 17 GM Packet PO SCH (08:45)
[2022-05-08] MEDS: Simethicone Chewable 80 MG TAB PO SCH ×4 (08:45→20:22)
[2022-05-08] MEDS: Pantoprazole 40 MG VIAL IVP SCH ×2 (08:45→20:22)
[2022-05-08] MEDS: MULTIVIT/IRON SULF/FOLIC ACID 1 EACH TAB PO SCH (08:46)
[2022-05-08] MEDS: Apixaban 5 MG TAB PO SCH ×2 (08:46→20:22)
[2022-05-08] MEDS ORDERED: Bisacodyl 10 MG SUPP PR SCH (09:00)
[2022-05-08] MEDS: Acetaminophen 325 MG TAB PO PRN ×2 (09:04→18:01)
[2022-05-08] MEDS: Senokot S 8.6-50 MG TAB PO SCH ×2 (11:35→20:24)
[2022-05-08] MEDS: Nicotine 14 MG PATCH TD SCH (13:31)
[2022-05-08] MEDS: Atorvastatin Calcium 40 MG TAB PO SCH (20:22)
[2022-05-09] MEDS: D5 0.9% NS w/ 20 mEq KCl 1,000 ML IV SCH ×3 (00:14→23:55)
[2022-05-09] MEDS: Ondansetron PF 4 MG/2 ML Vial IVP PRN ×3 (02:33→20:11)
[2022-05-09] MEDS: Morphine 4 MG/ML VIAL SLOW IVP PRN (02:34)
[2022-05-09 07:33] LABS: ALT (SGPT) Less than 7 U/L (8-55); AST (SGOT) 27 U/L (5-34); Albumin 1.6 g/dL (3.5-5.0); Alkaline Phosphatase 135 U/L (40-110); Anion Gap 12 mmol/L (10-20); BUN (Urea Nitrogen) 4 mg/dL (8.4-25.7); Bilirubin, Total 0.8 mg/dL (0.2-1.2); Calc. Creatinine Clearance 119 mL/min (70-130); Carbon Dioxide 21 mmol/L (22-29); Chloride 103 mmol/L (98-107); Estimated GFR 111; Globulin 2.9 g/dL (2.4-3.5); Glucose 90 mg/dL (70-105); Potassium 4.2 mmol/L (3.5-5.1); Protein, Total 4.5 g/dL (6.0-8.3); Sodium 132 mmol/L (136-145)
[2022-05-09 07:39] LABS: Hemoglobin 9.1 g/dL (14.0-18.0); Mean Corpuscular HGB CONC 32.6 g/dL (32.0-36.0); Mean Corpuscular Hemoglobin 34.6 pg (27.0-31.0); Mean Platelet Volume 6.9 fL (7.4-10.4); Platelet Count 1165 10x3/uL (130-400); RBC Distribution Width 12.6 % (11.5-14.5); Red Blood Cell (RBC) Count 2.63 mill/uL (4.70-6.10); White Blood Cell (WBC) Count 21.1 10x3/uL (4.8-10.8)
[2022-05-09] MEDS: Simethicone Chewable 80 MG TAB PO SCH ×4 (08:00→20:10)
[2022-05-09] MEDS: Acetaminophen 325 MG TAB PO PRN ×3 (08:00→20:11)
[2022-05-09] MEDS: Apixaban 5 MG TAB PO SCH ×2 (08:01→20:11)
[2022-05-09] MEDS: Pantoprazole 40 MG VIAL IVP SCH ×2 (08:01→20:11)
[2022-05-09] MEDS: MULTIVIT/IRON SULF/FOLIC ACID 1 EACH TAB PO SCH (08:01)
[2022-05-09] MEDS: Polyethylene Glycol 3350 17 GM Packet PO SCH (08:01)
[2022-05-09] MEDS: Senokot S 8.6-50 MG TAB PO SCH ×2 (08:01→20:11)
[2022-05-09 08:21] LABS: Band 1 % (5-11); Eosinophils 4 % (0-10); Hypochromia SLIGHT = 6-15 cells (100X) (0-5/hpf); Lymphocytes 5 % (21-51); MDiff Complete? YES; Monocytes 8 % (0-10); Neutrophil 82 % (42-75); Platelet Morphology Comment Appears Increased; Polychromasia SLIGHT = 2-3 cells (100X) (0-2/hpf); Reflex for Review?? YES; Small Platelets MODERATE; Target Cells SLIGHT = 2-5 cells (100X) (0-1/hpf)
[2022-05-09] MEDS: Nicotine 14 MG PATCH TD SCH (13:29)
[2022-05-09] MEDS: Atorvastatin Calcium 40 MG TAB PO SCH (20:11)
[2022-05-10] MEDS: Ondansetron PF 4 MG/2 ML Vial IVP PRN ×2 (02:51→08:24)
[2022-05-10] MEDS: Acetaminophen 325 MG TAB PO PRN ×4 (02:51→20:46)
[2022-05-10 07:51] LABS: Hemoglobin 8.5 g/dL (14.0-18.0); Mean Corpuscular HGB CONC 32.4 g/dL (32.0-36.0); Mean Corpuscular Hemoglobin 34.6 pg (27.0-31.0); Mean Platelet Volume 6.9 fL (7.4-10.4); Platelet Count 1108 10x3/uL (130-400); RBC Distribution Width 12.7 % (11.5-14.5); Red Blood Cell (RBC) Count 2.45 mill/uL (4.70-6.10); White Blood Cell (WBC) Count 20.6 10x3/uL (4.8-10.8)
[2022-05-10 07:55] LABS: ALT (SGPT) Less than 7 U/L (8-55); AST (SGOT) 29 U/L (5-34); Albumin 1.6 g/dL (3.5-5.0); Alkaline Phosphatase 123 U/L (40-110); Anion Gap 13 mmol/L (10-20); BUN (Urea Nitrogen) 5 mg/dL (8.4-25.7); Bilirubin, Total 0.9 mg/dL (0.2-1.2); Calc. Creatinine Clearance 122 mL/min (70-130); Calcium 7.1 mg/dL (7.8-10.44); Carbon Dioxide 21 mmol/L (22-29); Chloride 103 mmol/L (98-107); Estimated GFR 112; Globulin 2.9 g/dL (2.4-3.5); Glucose 84 mg/dL (70-105); Potassium 3.8 mmol/L (3.5-5.1); Protein, Total 4.5 g/dL (6.0-8.3); Sodium 133 mmol/L (136-145)
[2022-05-10] MEDS: Apixaban 5 MG TAB PO SCH ×2 (08:24→20:45)
[2022-05-10] MEDS: Pantoprazole 40 MG VIAL IVP SCH ×2 (08:24→20:46)
[2022-05-10] MEDS: Simethicone Chewable 80 MG TAB PO SCH ×4 (08:24→20:45)
[2022-05-10] MEDS: Polyethylene Glycol 3350 17 GM Packet PO SCH (08:25)
[2022-05-10] MEDS: D5 0.9% NS w/ 20 mEq KCl 1,000 ML IV SCH ×3 (08:25→20:43)
[2022-05-10] MEDS: Senokot S 8.6-50 MG TAB PO SCH ×2 (08:25→20:45)
[2022-05-10 08:54] LABS: Band 1 % (5-11); Eosinophils 2 % (0-10); Hypersemented Neutrophil SLIGHT; Hypochromia SLIGHT = 6-15 cells (100X) (0-5/hpf); Lymphocytes 1 % (21-51); MDiff Complete? YES; Macrocytosis MODERATE=16-30 cells (100X) (0-5/hpf); Monocytes 6 % (0-10); Neutrophil 90 % (42-75); Platelet Morphology Comment Appears Increased; Polychromasia SLIGHT = 2-3 cells (100X) (0-2/hpf); Target Cells MODERATE= 6-15 cells (100X) (0-1/hpf)
[2022-05-10] MEDS: MULTIVIT/IRON SULF/FOLIC ACID 1 EACH TAB PO SCH (09:31)
[2022-05-10] MEDS ORDERED: Ketorolac Tromethamine 30 MG/ML VIAL IVP SCH (11:30)
[2022-05-10] MEDS: Nicotine 14 MG PATCH TD SCH (11:43)
[2022-05-10] MEDS: Atorvastatin Calcium 40 MG TAB PO SCH (20:45)
[2022-05-11] MEDS ORDERED: Ketorolac Tromethamine 30 MG/ML VIAL IVP PRN (05:29)
[2022-05-11] MEDS: D5 0.9% NS w/ 20 mEq KCl 1,000 ML IV SCH (05:53)
[2022-05-11] MEDS ORDERED: Acetaminophen 325 MG TAB PO SCH (06:00)
[2022-05-11 07:04] LABS: #Eosinphils 0.6 thou/uL (0.0-0.7); #Lymphocytes 2.4 thou/uL (1.20-3.40); #Monocytes 1.6 thou/uL (0.11-0.59); #Neutrophils 13.4 thou/uL (1.40-6.50); %Basophils 0.1 % (0.0-1.0); %Eosinophils 3.2 % (0.0-10.0); %Lymphocytes 13.4 % (21.0-51.0); %Monocytes 8.7 % (0.0-10.0); %Neutrophils 74.6 % (42.0-75.0); Mean Corpuscular Hemoglobin 34.3 pg (27.0-31.0); Mean Platelet Volume 6.4 fL (7.4-10.4); Platelet Count 1141 10x3/uL (130-400); RBC Distribution Width 12.5 % (11.5-14.5); Red Blood Cell (RBC) Count 2.33 mill/uL (4.70-6.10); White Blood Cell (WBC) Count 17.9 10x3/uL (4.8-10.8)
[2022-05-11 07:25] LABS: ALT (SGPT) Less than 7 U/L (8-55); AST (SGOT) 26 U/L (5-34); Albumin 1.6 g/dL (3.5-5.0); Alkaline Phosphatase 114 U/L (40-110); Anion Gap 11 mmol/L (10-20); BUN (Urea Nitrogen) 4 mg/dL (8.4-25.7); Bilirubin, Total 0.7 mg/dL (0.2-1.2); Calc. Creatinine Clearance 107 mL/min (70-130); Carbon Dioxide 22 mmol/L (22-29); Chloride 106 mmol/L (98-107); Estimated GFR 108; Globulin 2.8 g/dL (2.4-3.5); Glucose 87 mg/dL (70-105); Lipase 141 U/L (8-78); Potassium 3.8 mmol/L (3.5-5.1); Protein, Total 4.4 g/dL (6.0-8.3); Sodium 135 mmol/L (136-145)
[2022-05-11 07:28] LABS: Calcium 6.9 mg/dL (7.8-10.44)
[2022-05-11] MEDS ORDERED: Calcium Gluconate 4.6 MEQ in Sodium Chloride 0.9% 100 ML IVPB SCH (07:54)
[2022-05-11] MEDS: Polyethylene Glycol 3350 17 GM Packet PO SCH (08:33)
[2022-05-11] MEDS: MULTIVIT/IRON SULF/FOLIC ACID 1 EACH TAB PO SCH (08:33)
[2022-05-11] MEDS: Simethicone Chewable 80 MG TAB PO SCH ×4 (08:33→20:57)
[2022-05-11] MEDS: Apixaban 5 MG TAB PO SCH ×2 (08:33→20:56)
[2022-05-11] MEDS: Pantoprazole 40 MG VIAL IVP SCH ×2 (08:33→20:57)
[2022-05-11] MEDS ORDERED: CALCIUM GLUC 1 GM/NS 50 ML 1 GM in Premix Bag 1 BAG IVPB SCH (08:45)
[2022-05-11] MEDS: traMADol HCl 50 MG TAB PO PRN ×2 (11:41→20:58)
[2022-05-11] MEDS: Acetaminophen 500 MG TAB PO SCH ×2 (11:41→17:22)
[2022-05-11] MEDS ORDERED: Albumin 25% 25 GM/100 ML BOT IVPB SCH (11:45)
[2022-05-11] MEDS ORDERED: ISOVUE-370 76%-LOCM 1 ML ONE (15:08)
[2022-05-11] MEDS: Ondansetron PF 4 MG/2 ML Vial IVP PRN (17:23)
[2022-05-11] MEDS: Atorvastatin Calcium 40 MG TAB PO SCH (20:56)
[2022-05-12] MEDS: Acetaminophen 500 MG TAB PO SCH ×4 (00:34→17:23)
[2022-05-12 06:32] LABS: #Eosinphils 0.3 thou/uL (0.0-0.7); #Lymphocytes 1.8 thou/uL (1.20-3.40); #Monocytes 1.1 thou/uL (0.11-0.59); #Neutrophils 11.9 thou/uL (1.40-6.50); %Basophils 0.1 % (0.0-1.0); %Eosinophils 1.7 % (0.0-10.0); %Lymphocytes 11.7 % (21.0-51.0); %Monocytes 7.1 % (0.0-10.0); %Neutrophils 79.4 % (42.0-75.0); Hemoglobin 8.9 g/dL (14.0-18.0); Mean Corpuscular HGB CONC 31.9 g/dL (32.0-36.0); Mean Corpuscular Hemoglobin 34.1 pg (27.0-31.0); Mean Platelet Volume 6.5 fL (7.4-10.4); Platelet Count 1242 10x3/uL (130-400); RBC Distribution Width 12.8 % (11.5-14.5); Red Blood Cell (RBC) Count 2.62 mill/uL (4.70-6.10)
[2022-05-12 06:57] LABS: ALT (SGPT) 7 U/L (8-55); AST (SGOT) 31 U/L (5-34); Albumin 1.8 g/dL (3.5-5.0); Alkaline Phosphatase 126 U/L (40-110); Anion Gap 11 mmol/L (10-20); BUN (Urea Nitrogen) Less than 4 mg/dL (8.4-25.7); Bilirubin, Total 1.1 mg/dL (0.2-1.2); Calc. Creatinine Clearance 114 mL/min (70-130); Calcium 7.4 mg/dL (7.8-10.44); Carbon Dioxide 22 mmol/L (22-29); Chloride 105 mmol/L (98-107); Estimated GFR 110; Globulin 2.7 g/dL (2.4-3.5); Glucose 67 mg/dL (70-105); Potassium 4.3 mmol/L (3.5-5.1); Protein, Total 4.5 g/dL (6.0-8.3); Sodium 134 mmol/L (136-145)
[2022-05-12] MEDS: traMADol HCl 50 MG TAB PO PRN ×3 (08:39→21:09)
[2022-05-12] MEDS: MULTIVIT/IRON SULF/FOLIC ACID 1 EACH TAB PO SCH (08:39)
[2022-05-12] MEDS: Apixaban 5 MG TAB PO SCH (08:39)
[2022-05-12] MEDS: Polyethylene Glycol 3350 17 GM Packet PO SCH (08:41)
[2022-05-12] MEDS: Ondansetron PF 4 MG/2 ML Vial IVP PRN ×3 (08:41→21:08)
[2022-05-12] MEDS: Simethicone Chewable 80 MG TAB PO SCH ×4 (08:41→21:10)
[2022-05-12] MEDS: Pantoprazole 40 MG VIAL IVP SCH ×2 (08:41→21:10)
[2022-05-12] MEDS ORDERED: Albumin 25% 25 GM/100 ML BOT IVPB SCH (13:00)
[2022-05-12] MEDS: Spironolactone 25 MG TAB PO SCH (17:22)
[2022-05-12] MEDS: Atorvastatin Calcium 40 MG TAB PO SCH (21:09)
[2022-05-12] MEDS: metroNIDAZOLE 500 MG in Premix Bag 1 BAG IVPB SCH (21:10)
[2022-05-13] MEDS: Acetaminophen 500 MG TAB PO SCH ×5 (00:01→23:30)
[2022-05-13] MEDS: traMADol HCl 50 MG TAB PO PRN ×3 (06:52→20:23)
[2022-05-13] MEDS: metroNIDAZOLE 500 MG in Premix Bag 1 BAG IVPB SCH ×3 (06:53→22:19)
[2022-05-13] MEDS: MULTIVIT/IRON SULF/FOLIC ACID 1 EACH TAB PO SCH (08:46)
[2022-05-13] MEDS: Polyethylene Glycol 3350 17 GM Packet PO SCH (08:46)
[2022-05-13] MEDS: Simethicone Chewable 80 MG TAB PO SCH ×4 (08:47→20:24)
[2022-05-13] MEDS: Spironolactone 25 MG TAB PO SCH ×2 (08:47→17:23)
[2022-05-13] MEDS: Pantoprazole 40 MG VIAL IVP SCH ×2 (08:48→22:19)
[2022-05-13] MEDS: Ondansetron PF 4 MG/2 ML Vial IVP PRN (08:48)
[2022-05-13] MEDS: Furosemide 20 MG TAB PO SCH (08:50)
[2022-05-13 08:57] LABS: #Eosinphils 0.2 thou/uL (0.0-0.7); #Monocytes 1.6 thou/uL (0.11-0.59); #Neutrophils 13.8 thou/uL (1.40-6.50); %Basophils 0.1 % (0.0-1.0); %Eosinophils 1.2 % (0.0-10.0); %Lymphocytes 11.3 % (21.0-51.0); %Neutrophils 78.4 % (42.0-75.0); Hemoglobin 8.6 g/dL (14.0-18.0); Mean Corpuscular HGB CONC 32.2 g/dL (32.0-36.0); Mean Corpuscular Hemoglobin 34.6 pg (27.0-31.0); Mean Platelet Volume 6.4 fL (7.4-10.4); Platelet Count 1114 10x3/uL (130-400); RBC Distribution Width 12.6 % (11.5-14.5); Red Blood Cell (RBC) Count 2.49 mill/uL (4.70-6.10); White Blood Cell (WBC) Count 17.6 10x3/uL (4.8-10.8)
[2022-05-13 09:19] LABS: ALT (SGPT) 7 U/L (8-55); AST (SGOT) 20 U/L (5-34); Albumin 2.1 g/dL (3.5-5.0); Alkaline Phosphatase 126 U/L (40-110); Anion Gap 15 mmol/L (10-20); BUN (Urea Nitrogen) 6 mg/dL (8.4-25.7); Bilirubin, Total 0.9 mg/dL (0.2-1.2); Calc. Creatinine Clearance 114 mL/min (70-130); Calcium 7.7 mg/dL (7.8-10.44); Carbon Dioxide 21 mmol/L (22-29); Chloride 103 mmol/L (98-107); Estimated GFR 110; Globulin 2.8 g/dL (2.4-3.5); Glucose 61 mg/dL (70-105); Potassium 4.2 mmol/L (3.5-5.1); Protein, Total 4.9 g/dL (6.0-8.3); Sodium 135 mmol/L (136-145)
[2022-05-13 14:03] LABS: Iron 10 ug/dL (65-175); Transferrin, Serum 36 mg/dL (174-364)
[2022-05-13 14:28] LABS: Ferritin 832.2 ng/mL (22-322)
[2022-05-13 19:59] LABS: Iron Binding Capacity, Total 45 mcg/dL (261-462)
[2022-05-13] MEDS: Atorvastatin Calcium 40 MG TAB PO SCH (20:24)
[2022-05-14] MEDS: traMADol HCl 50 MG TAB PO PRN ×3 (04:28→22:30)
[2022-05-14] MEDS: metroNIDAZOLE 500 MG in Premix Bag 1 BAG IVPB SCH ×3 (05:54→21:28)
[2022-05-14] MEDS: Acetaminophen 500 MG TAB PO SCH ×4 (05:54→23:32)
[2022-05-14 07:55] LABS: #Eosinphils 0.2 thou/uL (0.0-0.7); #Lymphocytes 1.2 thou/uL (1.20-3.40); #Monocytes 1.3 thou/uL (0.11-0.59); #Neutrophils 15.9 thou/uL (1.40-6.50); %Basophils 0.1 % (0.0-1.0); %Eosinophils 0.9 % (0.0-10.0); %Lymphocytes 6.4 % (21.0-51.0); %Monocytes 7.2 % (0.0-10.0); %Neutrophils 85.6 % (42.0-75.0); Hemoglobin 8.3 g/dL (14.0-18.0); Mean Corpuscular HGB CONC 31.3 g/dL (32.0-36.0); Mean Corpuscular Hemoglobin 33.8 pg (27.0-31.0); Mean Platelet Volume 6.7 fL (7.4-10.4); Platelet Count 1051 10x3/uL (130-400); RBC Distribution Width 12.7 % (11.5-14.5); Red Blood Cell (RBC) Count 2.45 mill/uL (4.70-6.10); White Blood Cell (WBC) Count 18.6 10x3/uL (4.8-10.8)
[2022-05-14] MEDS ORDERED: Sodium Bicarbonate 2.5 MEQ/5 ML VIAL ONE (08:15)
[2022-05-14] MEDS ORDERED: Lidocaine 1% PF 5 ML VIAL ONE (08:15)
[2022-05-14 08:18] LABS: ALT (SGPT) 7 U/L (8-55); AST (SGOT) 18 U/L (5-34); Albumin 1.9 g/dL (3.5-5.0); Alkaline Phosphatase 120 U/L (40-110); Anion Gap 14 mmol/L (10-20); BUN (Urea Nitrogen) 7 mg/dL (8.4-25.7); Bilirubin, Total 0.6 mg/dL (0.2-1.2); Calc. Creatinine Clearance 104 mL/min (70-130); Calcium 7.6 mg/dL (7.8-10.44); Carbon Dioxide 24 mmol/L (22-29); Chloride 104 mmol/L (98-107); Estimated GFR 107; Globulin 2.7 g/dL (2.4-3.5); Glucose 92 mg/dL (70-105); Potassium 4.6 mmol/L (3.5-5.1); Protein, Total 4.6 g/dL (6.0-8.3); Sodium 137 mmol/L (136-145)
[2022-05-14] MEDS: Pantoprazole 40 MG VIAL IVP SCH ×2 (09:48→21:28)
[2022-05-14] MEDS: Spironolactone 25 MG TAB PO SCH ×2 (09:48→16:35)
[2022-05-14] MEDS: MULTIVIT/IRON SULF/FOLIC ACID 1 EACH TAB PO SCH (09:48)
[2022-05-14] MEDS: Simethicone Chewable 80 MG TAB PO SCH ×4 (09:48→21:30)
[2022-05-14] MEDS: Polyethylene Glycol 3350 17 GM Packet PO SCH (09:48)
[2022-05-14] MEDS: Furosemide 20 MG TAB PO SCH (09:48)
[2022-05-14 10:47] LABS: RBC Count-Automated (BF) 1574 /cu.mm; WBC/Nucleated-Auto (BF) 4981 /cu.mm
[2022-05-14 10:55] LABS: BF Color Yellow; Body Fluid Source Ascites Body Fluid; Clarity Hazy (Clear); Tube # EDTA
[2022-05-14 12:01] LABS: BF Segmented Neutrophils 81 %; Cell Count Non Hematic 17 %; Eosinophils 1 %; Lymphocytes 1 %
[2022-05-14 13:40] LABS: Reference Lab Name LABCORP
[2022-05-14 13:41] LABS: Ref Lab Test Ordered JAK2 W/REFX/MPN
[2022-05-14] MEDS ORDERED: metroNIDAZOLE 500 MG/100 ML BAG ONE (20:37)
[2022-05-14] MEDS: Atorvastatin Calcium 40 MG TAB PO SCH (21:30)
[2022-05-15] MEDS: traMADol HCl 50 MG TAB PO PRN ×2 (05:15→18:35)
[2022-05-15] MEDS: Acetaminophen 500 MG TAB PO SCH ×3 (05:15→17:20)
[2022-05-15] MEDS: metroNIDAZOLE 500 MG in Premix Bag 1 BAG IVPB SCH ×3 (06:12→21:34)
[2022-05-15 08:33] LABS: #Eosinphils 0.3 thou/uL (0.0-0.7); #Lymphocytes 1.9 thou/uL (1.20-3.40); #Monocytes 1.4 thou/uL (0.11-0.59); #Neutrophils 13.3 thou/uL (1.40-6.50); %Eosinophils 1.8 % (0.0-10.0); %Monocytes 8.2 % (0.0-10.0); Hemoglobin 8.1 g/dL (14.0-18.0); Mean Corpuscular HGB CONC 30.3 g/dL (32.0-36.0); Mean Corpuscular Hemoglobin 32.8 pg (27.0-31.0); Mean Platelet Volume 6.4 fL (7.4-10.4); Platelet Count 1022 10x3/uL (130-400); RBC Distribution Width 12.8 % (11.5-14.5); Red Blood Cell (RBC) Count 2.45 mill/uL (4.70-6.10); White Blood Cell (WBC) Count 16.8 10x3/uL (4.8-10.8)
[2022-05-15] MEDS: Polyethylene Glycol 3350 17 GM Packet PO SCH (08:50)
[2022-05-15] MEDS: MULTIVIT/IRON SULF/FOLIC ACID 1 EACH TAB PO SCH (08:50)
[2022-05-15] MEDS: Simethicone Chewable 80 MG TAB PO SCH ×4 (08:50→21:31)
[2022-05-15 08:51] LABS: ALT (SGPT) Less than 7 U/L (8-55); AST (SGOT) 19 U/L (5-34); Albumin 1.8 g/dL (3.5-5.0); Alkaline Phosphatase 121 U/L (40-110); Anion Gap 10 mmol/L (10-20); BUN (Urea Nitrogen) 6 mg/dL (8.4-25.7); Bilirubin, Total 0.8 mg/dL (0.2-1.2); Calc. Creatinine Clearance 126 mL/min (70-130); Calcium 7.6 mg/dL (7.8-10.44); Carbon Dioxide 25 mmol/L (22-29); Chloride 103 mmol/L (98-107); Estimated GFR 110; Globulin 2.7 g/dL (2.4-3.5); Glucose 70 mg/dL (70-105); Potassium 3.8 mmol/L (3.5-5.1); Protein, Total 4.5 g/dL (6.0-8.3); Sodium 134 mmol/L (136-145)
[2022-05-15] MEDS: Pantoprazole 40 MG VIAL IVP SCH ×2 (08:51→21:31)
[2022-05-15] MEDS: Furosemide 20 MG TAB PO SCH (08:51)
[2022-05-15] MEDS: Spironolactone 25 MG TAB PO SCH ×2 (08:51→17:21)
[2022-05-15] MEDS: Ondansetron PF 4 MG/2 ML Vial IVP PRN (13:12)
[2022-05-15] MEDS: Albumin 25% 25 GM/100 ML BOT IVPB SCH (18:35)
[2022-05-15] MEDS: Apixaban 5 MG TAB PO SCH (21:32)
[2022-05-15] MEDS: Atorvastatin Calcium 40 MG TAB PO SCH (21:32)
[2022-05-16] MEDS: Albumin 25% 25 GM/100 ML BOT IVPB SCH ×3 (00:01→11:20)
[2022-05-16] MEDS: Acetaminophen 500 MG TAB PO SCH ×4 (00:02→17:30)
[2022-05-16] MEDS: traMADol HCl 50 MG TAB PO PRN ×3 (05:06→21:11)
[2022-05-16] MEDS: metroNIDAZOLE 500 MG in Premix Bag 1 BAG IVPB SCH ×3 (05:07→21:14)
[2022-05-16] MEDS: Spironolactone 25 MG TAB PO SCH (08:15)
[2022-05-16] MEDS: Apixaban 5 MG TAB PO SCH (08:15)
[2022-05-16] MEDS: Simethicone Chewable 80 MG TAB PO SCH ×4 (08:15→21:10)
[2022-05-16] MEDS: Furosemide 20 MG TAB PO SCH (08:15)
[2022-05-16] MEDS: MULTIVIT/IRON SULF/FOLIC ACID 1 EACH TAB PO SCH (08:15)
[2022-05-16 08:16] LABS: ALT (SGPT) Less than 7 U/L (8-55); AST (SGOT) 18 U/L (5-34); Albumin 2.8 g/dL (3.5-5.0); Alkaline Phosphatase 110 U/L (40-110); Anion Gap 14 mmol/L (10-20); BUN (Urea Nitrogen) 5 mg/dL (8.4-25.7); Bilirubin, Total 0.5 mg/dL (0.2-1.2); Calc. Creatinine Clearance 127 mL/min (70-130); Calcium 7.8 mg/dL (7.8-10.44); Carbon Dioxide 22 mmol/L (22-29); Chloride 101 mmol/L (98-107); Estimated GFR 109; Glucose 65 mg/dL (70-105); Potassium 3.7 mmol/L (3.5-5.1); Protein, Total 4.8 g/dL (6.0-8.3); Sodium 133 mmol/L (136-145)
[2022-05-16] MEDS: Polyethylene Glycol 3350 17 GM Packet PO SCH (08:16)
[2022-05-16] MEDS: Pantoprazole 40 MG VIAL IVP SCH (08:16)
[2022-05-16 08:33] LABS: #Eosinphils 0.2 thou/uL (0.0-0.7); #Lymphocytes 1.6 thou/uL (1.20-3.40); #Monocytes 1.3 thou/uL (0.11-0.59); %Basophils 0.2 % (0.0-1.0); %Eosinophils 1.8 % (0.0-10.0); %Lymphocytes 11.9 % (21.0-51.0); %Monocytes 9.7 % (0.0-10.0); %Neutrophils 76.4 % (42.0-75.0); Hemoglobin 6.8 g/dL (14.0-18.0); Mean Corpuscular HGB CONC 31.9 g/dL (32.0-36.0); Mean Corpuscular Hemoglobin 34.2 pg (27.0-31.0); Mean Platelet Volume 6.8 fL (7.4-10.4); Platelet Count 849 10x3/uL (130-400); RBC Distribution Width 12.9 % (11.5-14.5); White Blood Cell (WBC) Count 13.1 10x3/uL (4.8-10.8)
[2022-05-16] MEDS ORDERED: Iron, Sodium Ferric Gluconate 125 MG in Sodium Chloride 0.9% 100 ML IVPB SCH (10:15)
[2022-05-16 13:37] LABS: Lipase-Fluid 4872 U/L (.)
[2022-05-16] MEDS ORDERED: Furosemide 20 MG TAB PO SCH (16:00)
[2022-05-16 19:37] LABS: Hemoglobin 8.7 g/dL (14.0-18.0); Platelet Count 754 10x3/uL (130-400)
[2022-05-16] MEDS: Atorvastatin Calcium 40 MG TAB PO SCH (21:10)
[2022-05-17] MEDS: Acetaminophen 500 MG TAB PO SCH ×3 (00:18→11:22)
[2022-05-17 03:09] VITALS: TEMP 98.2
[2022-05-17] MEDS: metroNIDAZOLE 500 MG in Premix Bag 1 BAG IVPB SCH (05:23)
[2022-05-17 07:35] LABS: #Eosinphils 0.3 thou/uL (0.0-0.7); #Lymphocytes 1.8 thou/uL (1.20-3.40); #Monocytes 1.3 thou/uL (0.11-0.59); #Neutrophils 9.6 thou/uL (1.40-6.50); %Eosinophils 2.2 % (0.0-10.0); %Lymphocytes 13.9 % (21.0-51.0); %Monocytes 9.8 % (0.0-10.0); Hemoglobin 9.8 g/dL (14.0-18.0); Mean Corpuscular HGB CONC 33.9 g/dL (32.0-36.0); Mean Corpuscular Hemoglobin 34.9 pg (27.0-31.0); Mean Platelet Volume 6.6 fL (7.4-10.4); Platelet Count 869 10x3/uL (130-400); Red Blood Cell (RBC) Count 2.81 mill/uL (4.70-6.10); White Blood Cell (WBC) Count 12.9 10x3/uL (4.8-10.8)
[2022-05-17 07:48] LABS: ALT (SGPT) Less than 7 U/L (8-55); AST (SGOT) 24 U/L (5-34); Albumin 2.8 g/dL (3.5-5.0); Alkaline Phosphatase 135 U/L (40-110); Anion Gap 14 mmol/L (10-20); BUN (Urea Nitrogen) Less than 4 mg/dL (8.4-25.7); Bilirubin, Total 0.9 mg/dL (0.2-1.2); Calc. Creatinine Clearance 119 mL/min (70-130); Calcium 7.9 mg/dL (7.8-10.44); Carbon Dioxide 24 mmol/L (22-29); Chloride 98 mmol/L (98-107); Estimated GFR 108; Globulin 2.4 g/dL (2.4-3.5); Glucose 62 mg/dL (70-105); Potassium 3.4 mmol/L (3.5-5.1); Protein, Total 5.2 g/dL (6.0-8.3); Sodium 133 mmol/L (136-145)
[2022-05-17] MEDS ORDERED: Spironolactone 100 MG TAB PO SCH (08:00)
[2022-05-17] MEDS: Simethicone Chewable 80 MG TAB PO SCH ×2 (08:29→11:22)
[2022-05-17] MEDS: MULTIVIT/IRON SULF/FOLIC ACID 1 EACH TAB PO SCH (08:29)
[2022-05-17] MEDS: Polyethylene Glycol 3350 17 GM Packet PO SCH (08:29)
[2022-05-17] MEDS ORDERED: Potassium Chloride 20 MEQ TAB PO SCH (08:45)
[2022-05-17] MEDS ORDERED: Furosemide 20 MG TAB PO SCH (09:00)
[2022-05-17] MEDS: Ondansetron PF 4 MG/2 ML Vial IVP PRN (09:08)
[2022-05-17] MEDS: traMADol HCl 50 MG TAB PO PRN ×2 (09:08→14:15)
[2022-05-17] MEDS ORDERED: Apixaban 5 MG TAB PO SCH ×2 (09:15→21:00)
[2022-05-17 11:02] VITALS: BP 137/89
== END 2022-05-17 16:16 | disposition home or self-care (01) | DRG 438 ==
LOC: ERS 15:20 → T4-B 20:00
PROVIDERS: ADMIT Student in an Organized Health Care Education/Training Program; ATTEND Student in an Organized Health Care Education/Training Program
PROC: 0DB98ZX Excision of Duodenum, Via Natural or Artificial Opening Endoscopic, Diagnostic (ICD-10-PCS; principal; 2022-04-30)
PROC: 0W9G3ZX Drainage of Peritoneal Cavity, Percutaneous Approach, Diagnostic (ICD-10-PCS; 2022-05-14)
DX: K85.20 Alcohol induced acute pancreatitis without necrosis or infection (principal); K65.2 Spontaneous bacterial peritonitis; K31.6 Fistula of stomach and duodenum; K56.7 Ileus, unspecified; K86.2 Cyst of pancreas; D13.2 Benign neoplasm of duodenum; K86.0 Alcohol-induced chronic pancreatitis; K44.9 Diaphragmatic hernia without obstruction or gangrene; K29.80 Duodenitis without bleeding; E78.5 Hyperlipidemia, unspecified; D64.9 Anemia, unspecified; K59.00 Constipation, unspecified; K70.31 Alcoholic cirrhosis of liver with ascites; D50.9 Iron deficiency anemia, unspecified; E87.6 Hypokalemia; K31.7 Polyp of stomach and duodenum; K86.89 Other specified diseases of pancreas; D75.839 Thrombocytosis, unspecified; Z86.718 Personal history of other venous thrombosis and embolism; Z98.890 Other specified postprocedural states; Z88.0 Allergy status to penicillin; Z79.01 Long term (current) use of anticoagulants; Z79.899 Other long term (current) drug therapy
CPT/HCPCS: 36415; 36416; 36430; 49083; 71045; 74018; 74177; 74183; 74240; 76705; 80053; 81003; 81015; 82042; 82140; 82607; 82728; 83540; 83550; 83605; 83690; 83735; 84100; 84145; 84157; 84466; 85025; 85060; 86850; 86870; 86880; 86900; 86901; 86905; 86922; 87040; 87070; 87205; 87324; 87449; 87811; 88112; 88305; 89051; 93005; 93010; 96361; 96365; 96375; A9579; C9113; J0611; J0692; J1611; J1644; J1885; J1956; J2270; J2405; J2704; J2916; J3475; J3480; J3490; J7120; P9016; P9047; Q9963; Q9966; Q9967; U0003; U0005

== ENCOUNTER 2022-07-13 09:21 | Emergency (ER) | payer MEDICARE, OTHER ==
[2022-07-13] MEDS ORDERED: Famotidine/PF 20 mg/2ml Vial ONE (10:19)
[2022-07-13] MEDS ORDERED: Morphine 4 MG/ML VIAL ONE ×2 (10:19→18:24)
[2022-07-13] MEDS ORDERED: Sucralfate 1 GM/10 ML UDCUP ONE (10:19)
[2022-07-13 11:05] LABS: #Eosinphils 0.1 thou/uL (0.0-0.7); #Monocytes 1.3 thou/uL (0.11-0.59); #Neutrophils 10.2 thou/uL (1.40-6.50); %Basophils 0.2 % (0.0-1.0); %Eosinophils 0.6 % (0.0-10.0); %Lymphocytes 8.3 % (21.0-51.0); %Monocytes 10.5 % (0.0-10.0); Hemoglobin 9.4 g/dL (14.0-18.0); Mean Corpuscular Hemoglobin 32.9 pg (27.0-31.0); Mean Corpuscular Volume 102.8 fl (78.0-98.0); Mean Platelet Volume 9.1 fL (7.4-10.4); Platelet Count 555 10x3/uL (130-400); RBC Distribution Width 15.8 % (11.5-14.5); Red Blood Cell (RBC) Count 2.86 mill/uL (4.70-6.10); White Blood Cell (WBC) Count 12.8 10x3/uL (4.8-10.8)
[2022-07-13] MEDS ORDERED: Iopamidol-370 76% 500 ML MDV (1 ML CHARGE) ONE (11:10)
[2022-07-13 11:24] LABS: ALT (SGPT) 25 U/L (8-55); AST (SGOT) 50 U/L (5-34); Albumin 2.3 g/dL (3.5-5.0); Alkaline Phosphatase 228 U/L (40-110); Anion Gap 12 mmol/L (10-20); BUN (Urea Nitrogen) 11 mg/dL (8.4-25.7); Bilirubin, Total 0.6 mg/dL (0.2-1.2); Calc. Creatinine Clearance 0 mL/min (70-130); Carbon Dioxide 19 mmol/L (22-29); Chloride 107 mmol/L (98-107); Estimated GFR 107; Globulin 3.4 g/dL (2.4-3.5); Glucose 89 mg/dL (70-105); Lipase 730 U/L (8-78); Magnesium 1.3 mg/dL (1.6-2.6); Potassium 3.6 mmol/L (3.5-5.1); Protein, Total 5.7 g/dL (6.0-8.3); Sodium 134 mmol/L (136-145)
[2022-07-13] MEDS ORDERED: fentaNYL 50 mcg/mL 1 mL Vial ONE ×2 (12:02→15:04)
[2022-07-13] MEDS ORDERED: Promethazine HCl 12.5 MG in Sodium Chloride 0.9% 50 ML IVPB SCH (12:15)
[2022-07-13] MEDS ORDERED: Magnesium 2 GM/50 ML BAG (IN WATER) ONE (14:11)
[2022-07-13] MEDS ORDERED: Cefepime 2 GM VIAL ONE (14:55)
[2022-07-13] MEDS ORDERED: metroNIDAZOLE 500 MG in Premix Bag 1 BAG IVPB SCH (17:45)
[2022-07-13] MEDS ORDERED: Loperamide HCl 2 MG CAP ONE (19:53)
[2022-07-13] MEDS ORDERED: LORazepam 2 MG/ML SYR.(CARPUJECT) ONE (19:54)
[2022-07-13 21:14] LABS: SARS-CoV-2 NAA Rapid Test Not Detected (NotDetected)
== END 2022-07-13 23:23 | disposition short-term general hospital (02) ==
LOC: ERS 09:21
DX: K86.3 Pseudocyst of pancreas (principal); E78.5 Hyperlipidemia, unspecified; I10 Essential (primary) hypertension; D72.829 Elevated white blood cell count, unspecified; Z79.899 Other long term (current) drug therapy; Z79.01 Long term (current) use of anticoagulants; Z20.822 Contact with and (suspected) exposure to COVID-19
CPT/HCPCS: 71045; 74177; 80053; 83605; 83690; 83735; 83880; 84484; 85025; 87040; 87077; 87149 ×2; 87186; 93005; 94760; J2060; J3010; U0002; 36415; 96374; 96375; J0692; J2270; J2550; J3475; Q9967; S0028

== ENCOUNTER 2022-09-28 12:18 | Inpatient (IN) | payer MEDICARE, OTHER ==
[2022-09-28 20:38] VITALS: BMI 18.1
[2022-09-28] MEDS ORDERED: Linezolid 600 MG TAB PO SCH (23:01)
[2022-09-28] MEDS ORDERED: LevoFLOXacin 750 MG TAB PO SCH (23:30)
[2022-09-28] MEDS ORDERED: metroNIDAZOLE 500 MG TAB PO SCH (23:30)
[2022-09-28] MEDS: traMADol HCl 50 MG TAB PO PRN (23:39)
[2022-09-29] MEDS ORDERED: oxyCODONE 5 MG TAB PO PRN ×3 (00:44→16:08)
[2022-09-29] MEDS ORDERED: oxyCODONE 5 MG TAB PO SCH (00:48)
[2022-09-29 05:51] LABS: Hematocrit 23.9 % (42.0-52.0); Hemoglobin 7.8 g/dL (14.0-18.0); Mean Corpuscular HGB CONC 32.6 g/dL (32.0-36.0); Mean Corpuscular Hemoglobin 30.8 pg (27.0-31.0); Mean Corpuscular Volume 94.5 fl (78.0-98.0); Mean Platelet Volume 9.4 fL (7.4-10.4); Platelet Count 379 10x3/uL (130-400); RBC Distribution Width 17.4 % (11.5-14.5); Red Blood Cell (RBC) Count 2.53 mill/uL (4.70-6.10); White Blood Cell (WBC) Count 7.2 10x3/uL (4.8-10.8)
[2022-09-29 06:21] LABS: Delete Auto Diff?? YES; Manual Diff?? YES
[2022-09-29 06:31] LABS: ALT (SGPT) 86 U/L (8-55); AST (SGOT) 100 U/L (5-34); Albumin 2.9 g/dL (3.5-5.0); Alkaline Phosphatase 505 U/L (40-110); Anion Gap 10 mmol/L (10-20); BUN (Urea Nitrogen) 26 mg/dL (8.4-25.7); Bilirubin, Total 0.7 mg/dL (0.2-1.2); Calc. Creatinine Clearance 96 mL/min (70-130); Calcium 9.7 mg/dL (7.8-10.44); Carbon Dioxide 27 mmol/L (22-29); Chloride 103 mmol/L (98-107); Estimated GFR 107; Globulin 3.8 g/dL (2.4-3.5); Glucose 95 mg/dL (70-105); Potassium 4.5 mmol/L (3.5-5.1); Protein, Total 6.7 g/dL (6.0-8.3); Sodium 135 mmol/L (136-145)
[2022-09-29 07:30] LABS: Anisocytosis MARKED = >30 cells HPF (0-5); Eosinophils 7 % (0-10); Hypochromia MODERATE=16-30 cells HPF (0-5); Large Platelets 4.9 % (0-5); Lymphocytes 22 % (21-51); Macrocytosis MODERATE=16-30 cells HPF (0-5); Monocytes 19 % (0-10); Neutrophil 50 % (42-75); Platelet Adequacy Comment Platelets Normal; Poikilocytosis MARKED = >30 cells HPF (0-5); Polychromasia SLIGHT = 2-3 cells HPF (0-2); Reactive Lymphocytes 3 % (0-10); Total Cell Count 103
[2022-09-29] MEDS: metroNIDAZOLE 250 MG TAB PO SCH ×3 (08:13→21:31)
[2022-09-29] MEDS: Linezolid 600 MG TAB PO SCH ×2 (08:13→21:31)
[2022-09-29] MEDS: traMADol HCl 50 MG TAB PO PRN (14:24)
[2022-09-29] MEDS ORDERED: traMADol HCl 50 MG TAB PO PRN (16:07)
[2022-09-29] MEDS: Morphine 2 MG/ML VIAL SLOW IVP PRN ×2 (16:31→23:53)
[2022-09-29] MEDS: Lidocaine 4% Patch TD SCH (16:31)
[2022-09-29] MEDS: LevoFLOXacin 750 MG TAB PO SCH (17:26)
[2022-09-29] MEDS: Acetaminophen 500 MG TAB PO SCH (21:30)
[2022-09-30] MEDS: Transdermal Patch Removal TOP SCH (05:08)
[2022-09-30] MEDS: Morphine 2 MG/ML VIAL SLOW IVP PRN ×3 (06:17→23:16)
[2022-09-30 07:04] LABS: Hematocrit 24.6 % (42.0-52.0); Hemoglobin 8.1 g/dL (14.0-18.0); Mean Corpuscular HGB CONC 32.9 g/dL (32.0-36.0); Mean Corpuscular Hemoglobin 31.4 pg (27.0-31.0); Mean Corpuscular Volume 95.3 fl (78.0-98.0); Mean Platelet Volume 10.3 fL (7.4-10.4); Platelet Count 379 10x3/uL (130-400); RBC Distribution Width 17.4 % (11.5-14.5); Red Blood Cell (RBC) Count 2.58 mill/uL (4.70-6.10); White Blood Cell (WBC) Count 6.2 10x3/uL (4.8-10.8)
[2022-09-30 07:14] LABS: Delete Auto Diff?? YES; Manual Diff?? YES
[2022-09-30 07:21] LABS: Phosphorus 4.9 mg/dL (2.3-4.7)
[2022-09-30 07:22] LABS: ALT (SGPT) 87 U/L (8-55); AST (SGOT) 91 U/L (5-34); Alkaline Phosphatase 468 U/L (40-110); Anion Gap 10 mmol/L (10-20); BUN (Urea Nitrogen) 22 mg/dL (8.4-25.7); Bilirubin, Total 0.8 mg/dL (0.2-1.2); Calc. Creatinine Clearance 94 mL/min (70-130); Calcium 9.7 mg/dL (7.8-10.44); Carbon Dioxide 27 mmol/L (22-29); Chloride 102 mmol/L (98-107); Estimated GFR 106; Globulin 3.8 g/dL (2.4-3.5); Glucose 74 mg/dL (70-105); Magnesium 1.4 mg/dL (1.6-2.6); Potassium 4.2 mmol/L (3.5-5.1); Protein, Total 6.8 g/dL (6.0-8.3); Sodium 135 mmol/L (136-145)
[2022-09-30 08:09] LABS: #Basophils 0.1 thou/uL (0.0-0.2); #Eosinphils 0.6 thou/uL (0.0-0.7)
[2022-09-30 08:10] LABS: #Neutrophils 2.4 thou/uL (1.40-6.50); %Basophils 0.9 % (0.0-1.0); %Eosinophils 9.7 % (0.0-10.0); %Lymphocytes 36.2 % (21.0-51.0); %Neutrophils 36.9 % (42.0-75.0)
[2022-09-30] MEDS: Ibuprofen 600 MG TAB PO SCH ×3 (08:59→20:51)
[2022-09-30] MEDS: Linezolid 600 MG TAB PO SCH ×2 (09:00→20:53)
[2022-09-30] MEDS: metroNIDAZOLE 250 MG TAB PO SCH ×3 (09:00→20:52)
[2022-09-30] MEDS: Acetaminophen 500 MG TAB PO SCH ×3 (09:00→20:52)
[2022-09-30] MEDS: Scopolamine 1.5 mg/72 hour Patch TD SCH (12:34)
[2022-09-30] MEDS: Multivitamins, Adult 10 ML, TRACE ELEMENT CONCENTRATE 1 ML in D15W-AA 5% with Lytes 2,0... IV SCH (14:37)
[2022-09-30] MEDS: Lidocaine 4% Patch TD SCH (17:17)
[2022-09-30] MEDS: LevoFLOXacin 750 MG TAB PO SCH (17:17)
[2022-09-30] MEDS: traMADol HCl 50 MG TAB PO PRN (20:52)
[2022-10-01] MEDS: Ibuprofen 600 MG TAB PO SCH ×4 (02:49→21:40)
[2022-10-01] MEDS: Transdermal Patch Removal TOP SCH (05:11)
[2022-10-01] MEDS: traMADol HCl 50 MG TAB PO PRN (05:36)
[2022-10-01 05:52] LABS: Hematocrit 24.7 % (42.0-52.0); Hemoglobin 8.1 g/dL (14.0-18.0); Mean Corpuscular HGB CONC 32.8 g/dL (32.0-36.0); Mean Corpuscular Hemoglobin 30.8 pg (27.0-31.0); Mean Corpuscular Volume 93.9 fl (78.0-98.0); Mean Platelet Volume 9.3 fL (7.4-10.4); Platelet Count 368 10x3/uL (130-400); RBC Distribution Width 17.1 % (11.5-14.5); Red Blood Cell (RBC) Count 2.63 mill/uL (4.70-6.10); White Blood Cell (WBC) Count 6.6 10x3/uL (4.8-10.8)
[2022-10-01 05:53] LABS: Delete Auto Diff?? YES; Manual Diff?? YES
[2022-10-01 06:17] LABS: ALT (SGPT) 62 U/L (8-55); AST (SGOT) 59 U/L (5-34); Albumin 2.9 g/dL (3.5-5.0); Alkaline Phosphatase 411 U/L (40-110); Anion Gap 9 mmol/L (10-20); BUN (Urea Nitrogen) 26 mg/dL (8.4-25.7); Bilirubin, Total 0.7 mg/dL (0.2-1.2); Calc. Creatinine Clearance 82 mL/min (70-130); Calcium 9.6 mg/dL (7.8-10.44); Carbon Dioxide 28 mmol/L (22-29); Chloride 100 mmol/L (98-107); Estimated GFR 102; Globulin 3.8 g/dL (2.4-3.5); Glucose 115 mg/dL (70-105); Magnesium 1.4 mg/dL (1.6-2.6); Potassium 4.3 mmol/L (3.5-5.1); Protein, Total 6.7 g/dL (6.0-8.3); Sodium 133 mmol/L (136-145)
[2022-10-01 06:21] LABS: Anisocytosis SLIGHT = 6-15 cells HPF (0-5); CellaVision Operator ID lab.abc; Eosinophils 8 % (0-10); Hypochromia SLIGHT = 6-15 cells HPF (0-5); Large Platelets 5.8 % (0-5); Lymphocytes 16 % (21-51); Monocytes 13 % (0-10); Neutrophil 64 % (42-75); Platelet Adequacy Comment Platelets Normal; Smudge Cells 12.6 %; Total Cell Count 103
[2022-10-01] MEDS ORDERED: Magnesium 2 GM/50 ML(in water) 2 GM in Premix Bag 1 BAG IVPB SCH (08:15)
[2022-10-01] MEDS ORDERED: Sevelamer Carbonate 800 MG TAB PO SCH (08:15)
[2022-10-01] MEDS: Linezolid 600 MG TAB PO SCH ×2 (08:45→21:40)
[2022-10-01] MEDS: Morphine 2 MG/ML VIAL SLOW IVP PRN ×2 (08:46→17:08)
[2022-10-01] MEDS: Acetaminophen 500 MG TAB PO SCH ×3 (08:46→21:39)
[2022-10-01] MEDS: metroNIDAZOLE 250 MG TAB PO SCH ×3 (08:46→21:40)
[2022-10-01] MEDS ORDERED: Metoclopramide HCl 10 MG TAB PO PRN (10:21)
[2022-10-01] MEDS ORDERED: Metoclopramide HCl 10 MG TAB PO SCH (11:30)
[2022-10-01] MEDS ORDERED: Ondansetron ODT 4 MG TAB PO PRN (12:14)
[2022-10-01] MEDS: Multivitamins, Adult 10 ML, TRACE ELEMENT CONCENTRATE 1 ML in D15W-AA 5% with Lytes 2,0... IV SCH (14:35)
[2022-10-01] MEDS: Lidocaine 4% Patch TD SCH (15:47)
[2022-10-01] MEDS: LevoFLOXacin 750 MG TAB PO SCH (17:06)
[2022-10-02] MEDS: Ibuprofen 600 MG TAB PO SCH ×4 (01:22→22:36)
[2022-10-02] MEDS: Morphine 2 MG/ML VIAL SLOW IVP PRN ×2 (01:23→13:12)
[2022-10-02] MEDS: Transdermal Patch Removal TOP SCH (04:25)
[2022-10-02 06:30] LABS: Hematocrit 22.8 % (42.0-52.0); Hemoglobin 7.2 g/dL (14.0-18.0); Mean Corpuscular HGB CONC 31.6 g/dL (32.0-36.0); Mean Corpuscular Hemoglobin 30.8 pg (27.0-31.0); Mean Corpuscular Volume 97.4 fl (78.0-98.0); Mean Platelet Volume 9.8 fL (7.4-10.4); Platelet Count 342 10x3/uL (130-400); RBC Distribution Width 17.5 % (11.5-14.5); Red Blood Cell (RBC) Count 2.34 mill/uL (4.70-6.10); White Blood Cell (WBC) Count 6.3 10x3/uL (4.8-10.8)
[2022-10-02 06:51] LABS: Delete Auto Diff?? YES; Manual Diff?? YES
[2022-10-02 06:58] LABS: ALT (SGPT) 44 U/L (8-55); AST (SGOT) 39 U/L (5-34); Albumin 2.6 g/dL (3.5-5.0); Alkaline Phosphatase 313 U/L (40-110); Anion Gap 15 mmol/L (10-20); BUN (Urea Nitrogen) 32 mg/dL (8.4-25.7); Bilirubin, Total 0.7 mg/dL (0.2-1.2); Calc. Creatinine Clearance 57 mL/min (70-130); Calcium 9.5 mg/dL (7.8-10.44); Carbon Dioxide 21 mmol/L (22-29); Chloride 96 mmol/L (98-107); Estimated GFR 75; Globulin 3.7 g/dL (2.4-3.5); Protein, Total 6.3 g/dL (6.0-8.3); Sodium 126 mmol/L (136-145)
[2022-10-02 07:01] LABS: Phosphorus 7.5 mg/dL (2.3-4.7)
[2022-10-02 07:03] LABS: Potassium 6.4 mmol/L (3.5-5.1)
[2022-10-02 07:27] LABS: Glucose 810 mg/dL (70-105)
[2022-10-02 07:34] LABS: Anisocytosis MODERATE=16-30 cells HPF (0-5); Band 2 % (5-11); Burr Cells MODERATE= 6-15 cells HPF (0-1); CellaVision Operator ID LAB.JMM; Eosinophils 7 % (0-10); Large Platelets 6.9 % (0-5); Lymphocytes 22 % (21-51); Metamyelocyte 1 % (0-0); Monocytes 10 % (0-10); Neutrophil 57 % (42-75); Platelet Adequacy Comment Platelets Normal; Poikilocytosis SLIGHT = 6-15 cells HPF (0-5); Smudge Cells 25.7 %; Target Cells SLIGHT = 2-5 cells HPF (0-1); Total Cell Count 101
[2022-10-02] MEDS ORDERED: LOKELMA 10 GM PACKET PO SCH (08:00)
[2022-10-02 08:33] LABS: Hematocrit 27.6 % (42.0-52.0); Mean Corpuscular HGB CONC 32.6 g/dL (32.0-36.0); Mean Corpuscular Hemoglobin 31.5 pg (27.0-31.0); Mean Corpuscular Volume 96.5 fl (78.0-98.0); Mean Platelet Volume 9.5 fL (7.4-10.4); Platelet Count 364 10x3/uL (130-400); RBC Distribution Width 17.1 % (11.5-14.5); Red Blood Cell (RBC) Count 2.86 mill/uL (4.70-6.10); White Blood Cell (WBC) Count 7.2 10x3/uL (4.8-10.8)
[2022-10-02 08:34] LABS: #Basophils 0.1 thou/uL (0.0-0.2); #Eosinphils 0.5 thou/uL (0.0-0.7); #Monocytes 1.4 thou/uL (0.11-0.59); #Neutrophils 3.5 thou/uL (1.40-6.50); %Basophils 0.8 % (0.0-1.0); %Eosinophils 6.7 % (0.0-10.0); %Lymphocytes 24.8 % (21.0-51.0); %Monocytes 19.4 % (0.0-10.0)
[2022-10-02 08:35] LABS: Delete Auto Diff?? YES; Manual Diff?? YES
[2022-10-02 08:59] LABS: AST (SGOT) 42 U/L (5-34); Albumin 3.1 g/dL (3.5-5.0); Alkaline Phosphatase 368 U/L (40-110); Anion Gap 13 mmol/L (10-20); BUN (Urea Nitrogen) 32 mg/dL (8.4-25.7); Bilirubin, Total 0.9 mg/dL (0.2-1.2); Calc. Creatinine Clearance 83 mL/min (70-130); Calcium 9.9 mg/dL (7.6-10.4); Carbon Dioxide 25 mmol/L (22-29); Chloride 100 mmol/L (98-107); Estimated GFR 102; Glucose 100 mg/dL (70-105); Potassium 4.5 mmol/L (3.5-5.1); Protein, Total 7.1 g/dL (6.0-8.3); Sodium 133 mmol/L (136-145)
[2022-10-02 09:00] LABS: ALT (SGPT) 51 U/L (8-55)
[2022-10-02 09:04] LABS: Band 2 % (5-11); Burr Cells SLIGHT = 2-5 cells HPF (0-1); CellaVision Operator ID LAB.GE; Eosinophils 5 % (0-10); Lymphocytes 15 % (21-51); Monocytes 17 % (0-10); Neutrophil 56 % (42-75); Platelet Adequacy Comment Platelets Normal; Polychromasia SLIGHT = 2-3 cells HPF (0-2); Reactive Lymphocytes 4 % (0-10); Total Cell Count 99
[2022-10-02 09:47] LABS: Magnesium 1.8 mg/dL (1.6-2.6)
[2022-10-02] MEDS: Linezolid 600 MG TAB PO SCH ×2 (10:16→22:36)
[2022-10-02] MEDS: Sevelamer Carbonate 800 MG TAB PO SCH ×3 (10:16→16:51)
[2022-10-02] MEDS: metroNIDAZOLE 250 MG TAB PO SCH ×3 (10:16→22:36)
[2022-10-02] MEDS: Acetaminophen 500 MG TAB PO SCH ×3 (10:16→22:35)
[2022-10-02] MEDS: Ondansetron ODT 4 MG TAB PO SCH ×2 (11:21→16:51)
[2022-10-02] MEDS: Loratadine 10 MG TAB PO PRN (11:21)
[2022-10-02 12:39] LABS: Phosphorus 5.6 mg/dL (2.3-4.7)
[2022-10-02] MEDS ORDERED: [UNRECOGNIZED DRUG - REMARK] IVPB PRN (13:01)
[2022-10-02] MEDS ORDERED: SODIUM ACETATE IV SCH (14:00)
[2022-10-02] MEDS ORDERED: POTASSIUM CHLORIDE IV SCH (14:00)
[2022-10-02] MEDS ORDERED: [UNRECOGNIZED DRUG - OTHER] IV SCH (14:00)
[2022-10-02] MEDS ORDERED: SODIUM CHLORIDE IV SCH (14:00)
[2022-10-02] MEDS: Lidocaine 4% Patch TD SCH (15:39)
[2022-10-02] MEDS: LevoFLOXacin 750 MG TAB PO SCH (17:35)
[2022-10-03] MEDS: Ibuprofen 600 MG TAB PO SCH ×4 (02:04→20:43)
[2022-10-03] MEDS: Morphine 2 MG/ML VIAL SLOW IVP PRN ×3 (02:05→22:50)
[2022-10-03] MEDS: Transdermal Patch Removal TOP SCH (05:10)
[2022-10-03 06:53] LABS: Hematocrit 23.6 % (42.0-52.0); Hemoglobin 7.8 g/dL (14.0-18.0); Mean Corpuscular HGB CONC 33.1 g/dL (32.0-36.0); Mean Corpuscular Hemoglobin 31.2 pg (27.0-31.0); Mean Corpuscular Volume 94.4 fl (78.0-98.0); Mean Platelet Volume 9.4 fL (7.4-10.4); Platelet Count 344 10x3/uL (130-400); RBC Distribution Width 17.1 % (11.5-14.5); White Blood Cell (WBC) Count 8.2 10x3/uL (4.8-10.8)
[2022-10-03 06:57] LABS: Delete Auto Diff?? YES; Manual Diff?? YES
[2022-10-03 07:18] LABS: ALT (SGPT) 36 U/L (8-55); AST (SGOT) 30 U/L (5-34); Alkaline Phosphatase 322 U/L (40-110); Anion Gap 10 mmol/L (10-20); BUN (Urea Nitrogen) 32 mg/dL (8.4-25.7); Bilirubin, Total 0.6 mg/dL (0.2-1.2); Calc. Creatinine Clearance 84 mL/min (70-130); Calcium 9.6 mg/dL (7.8-10.44); Carbon Dioxide 27 mmol/L (22-29); Chloride 99 mmol/L (98-107); Estimated GFR 103; Globulin 3.7 g/dL (2.4-3.5); Glucose 93 mg/dL (70-105); Magnesium 1.6 mg/dL (1.6-2.6); Potassium 4.2 mmol/L (3.5-5.1); Protein, Total 6.7 g/dL (6.0-8.3); Sodium 132 mmol/L (136-145)
[2022-10-03 07:45] LABS: Phosphorus 3.7 mg/dL (2.3-4.7)
[2022-10-03] MEDS: Linezolid 600 MG TAB PO SCH ×2 (08:33→20:44)
[2022-10-03] MEDS: metroNIDAZOLE 250 MG TAB PO SCH ×3 (08:33→20:44)
[2022-10-03] MEDS: Ondansetron ODT 4 MG TAB PO SCH ×3 (08:33→17:57)
[2022-10-03] MEDS: Acetaminophen 500 MG TAB PO SCH ×3 (08:33→20:44)
[2022-10-03 08:51] LABS: Anisocytosis SLIGHT = 6-15 cells HPF (0-5); Band 5 % (5-11); Burr Cells SLIGHT = 2-5 cells HPF (0-1); CellaVision Operator ID LAB.GE; Eosinophils 9 % (0-10); Howell Jolly Bodies SLIGHT = 1-2 cells HPF (None Seen); Lymphocytes 19 % (21-51); Monocytes 9 % (0-10); Neutrophil 52 % (42-75); Platelet Adequacy Comment Platelets Normal; Polychromasia SLIGHT = 2-3 cells HPF (0-2); Reactive Lymphocytes 5 % (0-10); Target Cells SLIGHT = 2-5 cells HPF (0-1); Total Cell Count 100
[2022-10-03] MEDS ORDERED: Magnesium 2 GM/50 ML(in water) 2 GM in Premix Bag 1 BAG IVPB SCH (09:15)
[2022-10-03] MEDS: traMADol HCl 50 MG TAB PO PRN (12:20)
[2022-10-03] MEDS: Loratadine 10 MG TAB PO PRN (12:24)
[2022-10-03] MEDS: Scopolamine 1.5 mg/72 hour Patch TD SCH (13:25)
[2022-10-03] MEDS: Lidocaine 4% Patch TD SCH (15:58)
[2022-10-03] MEDS: LevoFLOXacin 750 MG TAB PO SCH (17:57)
[2022-10-04] MEDS: Ibuprofen 600 MG TAB PO SCH ×4 (02:20→20:20)
[2022-10-04] MEDS: Transdermal Patch Removal TOP SCH (05:18)
[2022-10-04 07:39] LABS: Hematocrit 23.8 % (42.0-52.0); Hemoglobin 7.8 g/dL (14.0-18.0); Mean Corpuscular HGB CONC 32.8 g/dL (32.0-36.0); Mean Corpuscular Hemoglobin 31.2 pg (27.0-31.0); Mean Corpuscular Volume 95.2 fl (78.0-98.0); Mean Platelet Volume 9.6 fL (7.4-10.4); Platelet Count 348 10x3/uL (130-400); RBC Distribution Width 17.5 % (11.5-14.5)
[2022-10-04 07:44] LABS: Manual Diff?? YES
[2022-10-04 07:45] LABS: Delete Auto Diff?? YES
[2022-10-04 08:07] LABS: ALT (SGPT) 30 U/L (8-55); AST (SGOT) 30 U/L (5-34); Alkaline Phosphatase 302 U/L (40-110); Anion Gap 12 mmol/L (10-20); BUN (Urea Nitrogen) 34 mg/dL (8.4-25.7); Bilirubin, Total 0.7 mg/dL (0.2-1.2); Calc. Creatinine Clearance 71 mL/min (70-130); Calcium 10.1 mg/dL (7.8-10.44); Carbon Dioxide 26 mmol/L (22-29); Chloride 102 mmol/L (98-107); Estimated GFR 98; Globulin 3.8 g/dL (2.4-3.5); Glucose 80 mg/dL (70-105); Magnesium 2.1 mg/dL (1.6-2.6); Potassium 4.5 mmol/L (3.5-5.1); Protein, Total 6.8 g/dL (6.0-8.3); Sodium 135 mmol/L (136-145)
[2022-10-04] MEDS: Ondansetron ODT 4 MG TAB PO SCH ×3 (08:26→17:05)
[2022-10-04] MEDS: Linezolid 600 MG TAB PO SCH ×2 (08:27→20:23)
[2022-10-04] MEDS: Acetaminophen 500 MG TAB PO SCH ×3 (08:27→20:22)
[2022-10-04] MEDS: metroNIDAZOLE 250 MG TAB PO SCH ×3 (08:27→20:23)
[2022-10-04 08:29] LABS: Phosphorus 4.6 mg/dL (2.3-4.7)
[2022-10-04 09:26] LABS: Band 4 % (5-11); Burr Cells SLIGHT = 2-5 cells HPF (0-1); CellaVision Operator ID LAB.GE; Eosinophils 7 % (0-10); Large Platelets 4.3 % (0-5); Lymphocytes 23 % (21-51); Monocytes 9 % (0-10); Neutrophil 57 % (42-75); Platelet Adequacy Comment Platelets Normal; Polychromasia SLIGHT = 2-3 cells HPF (0-2); Total Cell Count 115
[2022-10-04] MEDS: traMADol HCl 50 MG TAB PO PRN (10:07)
[2022-10-04] MEDS: Morphine 2 MG/ML VIAL SLOW IVP PRN ×3 (11:33→23:58)
[2022-10-04] MEDS: LevoFLOXacin 750 MG TAB PO SCH (17:05)
[2022-10-04] MEDS: Lidocaine 4% Patch TD SCH (17:05)
[2022-10-05] MEDS: Transdermal Patch Removal TOP SCH (01:04)
[2022-10-05] MEDS: Ibuprofen 600 MG TAB PO SCH ×4 (04:36→21:03)
[2022-10-05] MEDS: traMADol HCl 50 MG TAB PO PRN (04:41)
[2022-10-05] MEDS: Morphine 2 MG/ML VIAL SLOW IVP PRN ×3 (06:05→21:03)
[2022-10-05 06:23] LABS: #Basophils 0.1 thou/uL (0.0-0.2); #Eosinphils 0.9 thou/uL (0.0-0.7); #Monocytes 1.3 thou/uL (0.11-0.59); #Neutrophils 2.9 thou/uL (1.40-6.50); %Lymphocytes 32.5 % (21.0-51.0); %Monocytes 16.8 % (0.0-10.0); %Neutrophils 37.4 % (42.0-75.0); Hematocrit 25.7 % (42.0-52.0); Hemoglobin 8.1 g/dL (14.0-18.0); Mean Corpuscular HGB CONC 31.5 g/dL (32.0-36.0); Mean Corpuscular Hemoglobin 30.7 pg (27.0-31.0); Mean Corpuscular Volume 97.3 fl (78.0-98.0); Mean Platelet Volume 9.5 fL (7.4-10.4); Platelet Count 344 10x3/uL (130-400); RBC Distribution Width 17.6 % (11.5-14.5); Red Blood Cell (RBC) Count 2.64 mill/uL (4.70-6.10); White Blood Cell (WBC) Count 7.7 10x3/uL (4.8-10.8)
[2022-10-05 06:50] LABS: ALT (SGPT) 29 U/L (8-55); AST (SGOT) 34 U/L (5-34); Albumin 3.1 g/dL (3.5-5.0); Alkaline Phosphatase 297 U/L (40-110); Anion Gap 15 mmol/L (10-20); BUN (Urea Nitrogen) 29 mg/dL (8.4-25.7); Bilirubin, Total 0.7 mg/dL (0.2-1.2); Calc. Creatinine Clearance 62 mL/min (70-130); Calcium 9.6 mg/dL (7.8-10.44); Carbon Dioxide 21 mmol/L (22-29); Chloride 103 mmol/L (98-107); Estimated GFR 84; Globulin 3.8 g/dL (2.4-3.5); Glucose 90 mg/dL (70-105); Magnesium 1.7 mg/dL (1.6-2.6); Phosphorus 4.7 mg/dL (2.3-4.7); Potassium 4.5 mmol/L (3.5-5.1); Protein, Total 6.9 g/dL (6.0-8.3); Sodium 134 mmol/L (136-145)
[2022-10-05] MEDS: Acetaminophen 500 MG TAB PO SCH ×3 (07:33→21:02)
[2022-10-05] MEDS: Linezolid 600 MG TAB PO SCH ×2 (07:33→21:47)
[2022-10-05] MEDS: Ondansetron ODT 4 MG TAB PO SCH ×3 (07:33→18:24)
[2022-10-05] MEDS: metroNIDAZOLE 250 MG TAB PO SCH ×3 (07:34→21:47)
[2022-10-05] MEDS: Lidocaine 4% Patch TD SCH (14:58)
[2022-10-05] MEDS: LevoFLOXacin 750 MG TAB PO SCH (18:24)
[2022-10-06] MEDS: Transdermal Patch Removal TOP SCH (01:04)
[2022-10-06] MEDS ORDERED: Melatonin 3 MG TAB PO PRN (01:12)
[2022-10-06] MEDS: Ibuprofen 600 MG TAB PO SCH ×2 (01:59→09:33)
[2022-10-06] MEDS: traMADol HCl 50 MG TAB PO PRN (02:00)
[2022-10-06] MEDS: Morphine 2 MG/ML VIAL SLOW IVP PRN ×3 (03:28→20:24)
[2022-10-06 05:46] LABS: Hemoglobin 8.1 g/dL (14.0-18.0); Mean Corpuscular HGB CONC 32.4 g/dL (32.0-36.0); Mean Corpuscular Volume 95.8 fl (78.0-98.0); Mean Platelet Volume 9.4 fL (7.4-10.4); Platelet Count 341 10x3/uL (130-400); RBC Distribution Width 17.6 % (11.5-14.5); Red Blood Cell (RBC) Count 2.61 mill/uL (4.70-6.10)
[2022-10-06 05:48] LABS: Delete Auto Diff?? YES; Manual Diff?? YES
[2022-10-06 06:10] LABS: Phosphorus 4.7 mg/dL (2.3-4.7)
[2022-10-06 06:12] LABS: ALT (SGPT) 31 U/L (8-55); AST (SGOT) 35 U/L (5-34); Albumin 3.1 g/dL (3.5-5.0); Alkaline Phosphatase 284 U/L (40-110); Anion Gap 13 mmol/L (10-20); BUN (Urea Nitrogen) 29 mg/dL (8.4-25.7); Bilirubin, Total 0.7 mg/dL (0.2-1.2); Calc. Creatinine Clearance 60 mL/min (70-130); Calcium 9.5 mg/dL (7.8-10.44); Carbon Dioxide 24 mmol/L (22-29); Chloride 103 mmol/L (98-107); Estimated GFR 80; Globulin 3.9 g/dL (2.4-3.5); Glucose 85 mg/dL (70-105); Potassium 4.6 mmol/L (3.5-5.1); Sodium 135 mmol/L (136-145)
[2022-10-06 06:16] LABS: Band 5 % (5-11); CellaVision Operator ID LAB.CLH1; Eosinophils 12 % (0-10); Hypochromia SLIGHT = 6-15 cells HPF (0-5); Lymphocytes 13 % (21-51); Monocytes 7 % (0-10); Neutrophil 62 % (42-75); Platelet Adequacy Comment Platelets Normal; Polychromasia SLIGHT = 2-3 cells HPF (0-2); Target Cells SLIGHT = 2-5 cells HPF (0-1); Total Cell Count 99
[2022-10-06] MEDS: Ondansetron ODT 4 MG TAB PO SCH ×3 (06:37→16:04)
[2022-10-06] MEDS: Acetaminophen 500 MG TAB PO SCH ×3 (09:34→20:25)
[2022-10-06] MEDS ORDERED: Iopamidol-370 76% 500 ML MDV (1 ML CHARGE) ONE (10:35)
[2022-10-06] MEDS: Lidocaine 4% Patch TD SCH (16:04)
[2022-10-06] MEDS: Scopolamine 1.5 mg/72 hour Patch TD SCH (16:04)
[2022-10-06] MEDS ORDERED: traZODone HCl 50 MG TAB PO SCH (20:11)
[2022-10-06] MEDS ORDERED: Melatonin 3 MG TAB PO SCH (21:00)
[2022-10-07] MEDS: traMADol HCl 50 MG TAB PO PRN (02:09)
[2022-10-07] MEDS: Transdermal Patch Removal TOP SCH (02:12)
[2022-10-07 06:09] LABS: Hematocrit 22.5 % (42.0-52.0); Hemoglobin 7.6 g/dL (14.0-18.0); Mean Corpuscular HGB CONC 33.8 g/dL (32.0-36.0); Mean Corpuscular Hemoglobin 31.7 pg (27.0-31.0); Mean Corpuscular Volume 93.8 fl (78.0-98.0); Mean Platelet Volume 9.5 fL (7.4-10.4); Platelet Count 329 10x3/uL (130-400); RBC Distribution Width 17.7 % (11.5-14.5); White Blood Cell (WBC) Count 7.5 10x3/uL (4.8-10.8)
[2022-10-07 06:10] LABS: Delete Auto Diff?? YES; Manual Diff?? YES
[2022-10-07 06:34] LABS: ALT (SGPT) 30 U/L (8-55); AST (SGOT) 35 U/L (5-34); Albumin 3.1 g/dL (3.5-5.0); Alkaline Phosphatase 240 U/L (40-110); Anion Gap 13 mmol/L (10-20); BUN (Urea Nitrogen) 23 mg/dL (8.4-25.7); Bilirubin, Total 0.6 mg/dL (0.2-1.2); Calc. Creatinine Clearance 78 mL/min (70-130); Calcium 9.1 mg/dL (7.8-10.44); Carbon Dioxide 24 mmol/L (22-29); Chloride 102 mmol/L (98-107); Estimated GFR 101; Globulin 3.4 g/dL (2.4-3.5); Glucose 84 mg/dL (70-105); Potassium 4.3 mmol/L (3.5-5.1); Protein, Total 6.5 g/dL (6.0-8.3); Sodium 135 mmol/L (136-145)
[2022-10-07] MEDS: Ondansetron ODT 4 MG TAB PO SCH ×2 (06:36→11:06)
[2022-10-07 07:06] LABS: Phosphorus 4.4 mg/dL (2.3-4.7)
[2022-10-07 07:39] LABS: Anisocytosis SLIGHT = 6-15 cells HPF (0-5); Eosinophils 4 % (0-10); Lymphocytes 22 % (21-51); Monocytes 9 % (0-10); Neutrophil 64 % (42-75); Platelet Adequacy Comment Platelets Normal; Total Cell Count 114
[2022-10-07] MEDS: Morphine 2 MG/ML VIAL SLOW IVP PRN (08:40)
[2022-10-07] MEDS: Acetaminophen 500 MG TAB PO SCH ×2 (08:40→13:58)
[2022-10-07 11:55] VITALS: BP 97/56; TEMP 98.1
== END 2022-10-07 14:30 | disposition short-term general hospital (02) | DRG 438 ==
LOC: T4-A 19:09
PROVIDERS: ADMIT Family Medicine; ATTEND Family Medicine
PROC: 3E0336Z Introduction of Nutritional Substance into Peripheral Vein, Percutaneous Approach (ICD-10-PCS; principal; 2022-10-02)
DX: K86.3 Pseudocyst of pancreas (principal); K65.9 Peritonitis, unspecified; R64 Cachexia; Z68.1 Body mass index [BMI] 19.9 or less, adult; K86.1 Other chronic pancreatitis; E78.5 Hyperlipidemia, unspecified; D64.9 Anemia, unspecified; K70.30 Alcoholic cirrhosis of liver without ascites; Z79.899 Other long term (current) drug therapy; Z86.718 Personal history of other venous thrombosis and embolism; Z98.890 Other specified postprocedural states; Z88.0 Allergy status to penicillin; Z90.49 Acquired absence of other specified parts of digestive tract; Z90.81 Acquired absence of spleen; Z87.891 Personal history of nicotine dependence
CPT/HCPCS: 36415; 36416; 74178; 80053; 83735; 84100; 85025; 93005; 93010; J0612; J1650; J2272; J3475; J3480; Q0162; Q9967

== ENCOUNTER 2022-12-26 09:50 | Outpatient (CLI) | payer OTHER | END 2022-12-26 09:51 | disposition home or self-care (01) | LOC: BICRAD 09:50 | PROVIDERS: ATTEND Student in an Organized Health Care Education/Training Program | DX: G89.29 Other chronic pain (principal); S22.079A Unspecified fracture of T9-T10 vertebra, initial encounter for closed fracture; M19.011 Primary osteoarthritis, right shoulder; M47.816 Spondylosis without myelopathy or radiculopathy, lumbar region; M47.812 Spondylosis without myelopathy or radiculopathy, cervical region | CPT/HCPCS: 72040; 72072; 72100 ==

== ENCOUNTER 2023-04-29 08:05 | Outpatient (CLI) | payer OTHER | END 2023-04-29 08:06 | disposition home or self-care (01) | LOC: CT 08:05 | PROVIDERS: ATTEND Student in an Organized Health Care Education/Training Program | DX: Z12.2 Encounter for screening for malignant neoplasm of respiratory organs (principal); F17.210 Nicotine dependence, cigarettes, uncomplicated; J98.4 Other disorders of lung; J44.9 Chronic obstructive pulmonary disease, unspecified; J43.9 Emphysema, unspecified | CPT/HCPCS: 71271 ==

== ENCOUNTER 2023-07-23 07:33 | Outpatient (CLI) | payer OTHER | END 2023-07-23 07:34 | disposition home or self-care (01) | LOC: BICULT 07:33 | PROVIDERS: ATTEND Student in an Organized Health Care Education/Training Program | DX: K70.30 Alcoholic cirrhosis of liver without ascites (principal); K82.9 Disease of gallbladder, unspecified | CPT/HCPCS: 76705 ==

== ENCOUNTER 2024-03-25 14:56 | Emergency (ER) | payer MEDICARE, OTHER ==
[2024-03-25 15:45] LABS: #Basophils 0.09 10x3/uL (0.0-0.2); %Basophils 0.6 % (0.0-1.0); %Eosinophils 3.5 % (0.0-10.0); %Lymphocytes 24.6 % (21.0-51.0); %Monocytes 7.4 % (0.0-10.0); %Neutrophils 63.4 % (42.0-75.0); Hematocrit 42.8 % (42.0-52.0); Hemoglobin 14.3 g/dL (14.0-18.0); Mean Corpuscular HGB CONC 33.4 g/dL (32.0-36.0); Mean Corpuscular Hemoglobin 31.6 pg (27.0-31.0); Mean Corpuscular Volume 94.5 fL (78.0-98.0); Platelet Count 424 10x3/uL (130-400); RBC Distribution Width 13.6 % (11.5-14.5); Red Blood Cell (RBC) Count 4.53 mill/uL (4.70-6.10)
[2024-03-25 16:04] LABS: ALT (SGPT) 42 U/L (Less than 45); AST (SGOT) 32 U/L (11-34); Albumin 3.9 g/dL (3.1-4.5); Alkaline Phosphatase 169 U/L (40-110); Anion Gap 16 mmol/L (10-20); BUN (Urea Nitrogen) 15 mg/dL (8.4-25.7); Bilirubin, Total 0.5 mg/dL (0.3-1.2); Calc. Creatinine Clearance 0 mL/min (70-130); Calcium 9.1 mg/dL (7.8-10.44); Carbon Dioxide 22 mmol/L (23-31); Chloride 96 mmol/L (98-107); Estimated GFR 77; Globulin 3.8 g/dL (2.4-3.5); Glucose 554 mg/dL (80-115); Lipase 19 U/L (8-78); Protein, Total 7.7 g/dL (5.8-8.1); Sodium 130 mmol/L (136-145)
[2024-03-25 16:57] LABS: Bilirubin Negative (Negative); Blood, Urine Trace (Negative); CAUTI Indications for Culture Dysuria,urgency,freq; Clarity Clear (Clear); Glucose, Urine (Dipstick) Greater than 1000 mg/dL (Negative); Ketone, Urine Negative (Negative); Leukocyte Negative Leu/uL (Negative); Nitrite Negative (Negative); Protein, Urine (Dipstick) 10 mg/dL (Neg-Trace); RBC/HPF 0-3 HPF (0-3); Specific Gravity, Urine 1.038 (1.002-1.036); Squamous Epithelial 0-3 HPF (0-3); Urobilinogen Normal mg/dL (Less than 2); WBC/HPF 0-3 HPF (0-3); Yeast-Budding Rare HPF (None Seen)
[2024-03-25 16:59] LABS: Bacteria/HPF 1+ HPF (None Seen)
[2024-03-25 17:00] LABS: Urine Culture Reflex No No
[2024-03-25 19:21] LABS: ALT (SGPT) 38 U/L (Less than 45); AST (SGOT) 25 U/L (11-34); Albumin 3.7 g/dL (3.1-4.5); Alkaline Phosphatase 152 U/L (40-110); Anion Gap 14 mmol/L (10-20); BUN (Urea Nitrogen) 14 mg/dL (8.4-25.7); Bilirubin, Total 0.4 mg/dL (0.3-1.2); Calc. Creatinine Clearance 0 mL/min (70-130); Calcium 8.7 mg/dL (7.8-10.44); Carbon Dioxide 21 mmol/L (23-31); Chloride 103 mmol/L (98-107); Estimated GFR 88; Globulin 3.4 g/dL (2.4-3.5); Glucose 308 mg/dL (80-115); Potassium 4.4 mmol/L (3.5-5.1); Protein, Total 7.1 g/dL (5.8-8.1); Sodium 134 mmol/L (136-145)
== END 2024-03-25 20:01 | disposition home or self-care (01) ==
LOC: ERS 14:56
DX: R73.9 Hyperglycemia, unspecified (principal); E78.5 Hyperlipidemia, unspecified; I10 Essential (primary) hypertension; F17.200 Nicotine dependence, unspecified, uncomplicated
CPT/HCPCS: 36415; 80053; 81001; 82010; 83690; 85025; 87086; 96360

== ENCOUNTER 2025-02-23 09:01 | Outpatient (CLI) | payer MEDICARE | END 2025-02-23 09:02 | disposition home or self-care (01) | LOC: BICMRI 09:01 | PROVIDERS: ATTEND Family Medicine | DX: M47.812 Spondylosis without myelopathy or radiculopathy, cervical region (principal); M47.813 Spondylosis without myelopathy or radiculopathy, cervicothoracic region; M48.02 Spinal stenosis, cervical region | CPT/HCPCS: 72141 ==